=== PATIENT | male | born 1935 | race Caucasian/White ===

== ENCOUNTER 2025-02-27 18:50 | Inpatient (IN) | payer MEDICARE, SELFPAY ==
--- OUTSIDE RECORDS SUMMARY | 2019-03-06 11:31 | XMS_ITS | Continuity of Care Document ---
Author Organization [facility] Address [address] [place] [address] Phone Care Team Providers Care Instructor Extension Work Name Role Phone Brad OD, Neena Unavailable [...] Diagnoses Date Provider Providers Copied on Encounter [facility], [address], [place], [place], [id number], [place] tel:[phone] [facility] No Information 9 Brad Neena. [address], [place], [place], [address], [place]. tel:[phone] Referring Provider: Oscar Rodrigues, [address], [place], [address]. [phone] [facility], [address], [place], [place], [address], [place] tel:[phone] [facility] No Information 9 Brad Neena. [address], [place], [place], [id number], [place]. tel:[phone] Referring Provider: Oscra Rodrigues, [address], [place], [address]. tel:[phone] EST PT DETAILED E&M [facility], [address], [place], [place], [id number], [place] tel:[phone] [facility] Reports glare and starburst around lights (chief complaint) Reports foggy/hazy vision (chief complaint) POAG (chief complaint) Combined forms of age-related cataract, bilateralCys toid macular degeneration , right eyeVitreomac ular adhesion, right eyePrimary open-angle glaucoma, bilateral, mild stage 9 Tyrese Moore. [address], [place], [address], [place]. tel:[phone] Referring Provider: Oscar Rodrigues, [address], [place], [address]. tel:[phone] [facility], [address], [place], [place], [address], [place] tel:[phone] [facility] VMT (chief complaint) Vitreomacula r adhesion, right eyeCystoid macular degeneration , right eyeCombined forms of age-related cataract, bilateral 8 Milton Parks. [address] [place] [address] , [address], [place], [place], [facility], [place]. tel:[phone] Referring Provider: Neena Salinas, [address], [place], [address]. tel:[phone] EST PT DETAILED E&M [facility], [address], [place], [place], [id number], [place] tel:[phone] [facility] cataract eval (chief complaint) Combined forms of age-related cataract, bilateralVit reomacular adhesion, right eyePrimary open-angle glaucoma right eye mild stagePresbyo anjum 8 Patrick Ortiz. [address], [place], [place], [address], [place]. tel:[phone] Referring Provider: Neena Salinas, [facility] [address], [place], [address]. tel:[phone] [facility], [address], [place], [place], [id number], [place] tel:[phone] [facility] POAG (chief complaint) Primary open-angle glaucoma right eye mild stage 8 Patrick Ortiz. [address], [place], [place], [address], [place]. [phone] Referring Provider: Angel Hayes, [address], [place], [place], [address]. [phone] [facility], [address], [place], [place], [address], [place] tel:[phone] [facility] open angle (chief complaint) Age-related nuclear cataract, bilateralPri preet open-angle glaucoma right eye mild stageMacular cyst, hole, or pseudohole, right eyePresbyopi a 8 Johnny Dexter. [address], [place], [address], [place]. tel: [phone] Referring Provider: Isacc Reed, [address], [place], [address]. tel: [phone] [facility], [address], [place], [place], [id number], [place] tel:[phone] [facility] Eye [facility] [place] Primary open-angle glaucoma right eye mild stage Feb- 7 Johnny Dexter. [address], [place], [address], [place]. tel: [phone] [facility], [address], [place], [place], [address], [place] tel:[phone] [facility]ton[facility] Open angle with borderline findings, low risk, bilateral 7 Johnny Dexter. [address], [place], [place], [facility], [place]. tel: [phone] [facility], [address], [place], [place], [address], [place] tel:[phone] [facility] Age-related nuclear cataract, bilateralMac ular cyst, hole, or pseudohole, right eye 6 Johnny Dexter. [address], [place], [address], [place]. tel: [phone] [facility], [address], [place], [place], [address], [place] tel:[phone] [facility] [place] Preglaucoma, unspecified, bilateral 6 Johnny Dexter. [address], [place], [address], [place]. tel: [phone] [facility], [address], [place], [place], [address], [place] tel:[phone] SUSANNE Nayeli Joynera [facility] No Information 5 [address]. [address] [place], [address], [place]. tel:[phone] [facility], [address], [place], [place], [address], [place] tel:[phone] [facility] LeeK[facility] LID - BLEPHARITIS 2 Darell Terrazas. [address] [place], [place], [facility], [place]. tel:[phone] [facility], [address], [place], [place], [address], [place] tel:[phone] [facility] MACULA - DRUSENCATARA CT - CORTICALBLEP HARITIS 1 Darell Terrazas. [address] [place], [place], [facility], [place]. tel:[phone] [facility], [address], [place], [place], [address], [place] tel:[phone] [facility] GENERAL - MYOPIACATARA CT - NSCGLAUCOMA - GLAUCOMA SUSPECT Fe-0 201 0 Darell Terrazas. [address] [place], [place], [facility], [place]. tel:[phone] [facility], [address], [place], [place], [address], [place] tel:[phone] [facility] GLAUCOMA - GLAUCOMA SUSPECT November-0 200 9 Darell [address]razas. [address] [place], [place], [facility], [place]. tel:[phone] Family History Family Member Type Diagnosis Age At Onset No Information Immunizations Vaccine Date Status Comments Flu (split) (3 yrs or older) administered Source: Source Unspecified Payers Payer name Insurance type Covered libertarian ID Authoriza tion(s) No Information Social History [...] Vitre omacular adhesion, right eye Referral to [facility] at n ext available. // schedule cat sx, OU (retinal clearance prior) Related to Combined forms of age-related cataract, bilateral Impression/Plan Related to Prima ry open-angle glaucoma right eye mild stage Impression/Plan Related to Combi shane forms of age-related cataract, bilateral Impression/Plan Related to Vitre omacular adhesion, right eye Impression/Plan Related to Presb yopia RTC in 6 months for VCE w/ Dr. Salinas Related to Primary open-angle glaucoma right eye mild stage Impression/Plan Related to Prima ry open-angle glaucoma right eye mild stage RTC 4 mo OCT/TCK w/ Dr Johnny Elise lated to Primary open-angle glaucoma right eye mild stage Impression/Plan Related to Age-r elated nuclear cataract, bilateral Impression/Plan Related to Prima ry open-angle glaucoma right eye mild stage Impression/Plan Related to Macul ar cyst, hole, or pseudohole, right eye Impression/Plan Related to Presb yopia Assessments Type Assessment Date No Information Patient Care Teams Name Effective Dates (start - stop) Status Members No Information
[2025-02-27 18:44] VITALS: BP 129/79; PULSE 71; RESP 17; TEMP 37.2; O2SAT 93; BMI 25.1
--- NOTE | 2025-02-27 18:51 | ED_ITS ---
<Statement entered by Vel August DO - 02/28/25 01:51> I was consulted by the [facility], and we discussed the complexity of problems being addressed. I approved the treatment and management plan for this patient's care in the emergency department, thus performing a substantive portion of the medical decision making. Vel August DO Discharge Plan Disposition Patient Disposition: Admitted Condition: Fair Clinical Impressions Clinical Impression: Intertrochanteric fracture of left hip, Fall Discharge ED Provider: Vel August General Adult HPI <ALVAREZ Jarrell - Last Filed: 02/27/25 21:49> General Chief complaint: Extremity Injury, Lower Stated complaint: Fall Time Seen by Provider: 02/27/25 18:51 Mode of Arrival: EMS Source of Information: Patient Limitations: No Limitations History of Present Illness HPI narrative: 89-year-old male presents to the emergency department via EMS for a fall out of the back of his truck bed, has obvious deformity to the right hip/femur, complaining of right hip pain, no LOC, patient states he was down for around 30 minutes , denies striking head, no LOC but is somewhat unsure, denies any fever chills chest pain shortness of breath, denies any neck pain, mid thoracic spine pain or lower lumbar spine pain, denies any abdominal pain, nausea vomiting constipation diarrhea, no presyncopal or syncopal event, describes as a mechanical fall, has obvious skin tears to the right forearm, that are bandaged per EMS, and right shoulder pain, denies any other upper or lower extremity injury or pain, patient is a non-smoker denies any alcohol or drug use, other past medical history consistent with hypertension, unknown cardiac arrhythmia, on atropine he describes it as for skipped beats , not on any anticoagulant therapy, follows with cardiology regularly,. Initial triage vitals unremarkable. Patient is in c-collar, patient was given 100 mcg of IV fentanyl per EMS. Please note that above description of symptoms, in this electronic medical record under categorization of recalled from ER triage doctor by RN are reflective of an initial nursing assessment, however, is not reflective of my full history and physical exam that was personally taken and clarified. Consequentially, this preceding description of symptoms, which may include the patient's categorized chief complaint in the EMR, do not reflect my personal clinical impression, and the ultimate description of history of present illness and patient stated complaints should be deferred to this section of the note. Unless stated otherwise or congruent with this section of the note, additional signs, symptoms, or incongruence should be interpreted as inaccurate with my clinical impression. Onset (ago): hour(s) Related Data Home Medications ?Medication ?Instructions ?Recorded ?Confirmed budesonide 3 mg 3 mg PO DAILY 02/27/2502/27 capsule,delayed,extended release hydrochlorothiazide 12.5 mg capsule 12.5 mg PO DAILY 0 02/27/25 02/27/25 metoprolol succinate 25 mg 25 mg PO DAILY 02/27/25 tablet,extended release 24 hr Allergies Allergy/AdvReac Type Severity Reaction Status Date / Time No Known Allergies Allergy Verified 02/27/25 18:54 [facility] <ALVAREZ Jarrell - Last Filed: 02/27/25 21:49> [facility] Disclaimer: The information contained in this section may have been updated after the patient was seen, as this information can be updated by other users. Medical History (Updated 02/27/25 @ 23:32 by DONNA Mccormick) No significant past medical history Prostate cancer Family History (Updated 02/27/25 @ 22:45 by Alem Gomez RN) Other No significant family history Social History Smoking Status: Former smoker alcohol intake: current current occupational status: retired and other Travel in the last 8 weeks?: None Have you lived/traveled outside US in past 30 days?: No Contact w/someone who lives/traveled outside US past 30 days?: No Exposure to someone with infectious disease in past 14 days?: No Do you have a fever (greater than 100.4 F or 38 C)?: No Have you tested positive for COVID-19?: No Exposed to someone with COVID-19 in past 14 days?: No Do you have a sore throat?: No Do you have a cough?: No Do you have any weakness?: No Do you have any diarrhea?: No Are you experiencing any unusual bleeding?: No Do you have any muscle aches/pain?: No Do you have any abdominal pain?: No Are you experiencing loss of taste or smell?: No <ALVAREZ Jarrell - Last Filed: 02/27/25 21:49> ROS Obtained: Yes All systems reviewed & no additional complaints except as documented Physical Exam <ALVAREZ Jarrell - Last Filed: 02/27/25 21:49> General General appearance: alert and in no apparent distress Head Head exam: atraumatic and normocephalic Eye Eye exam: Present PERRL and EOMI ENT ENT exam: Present mucous membranes moist Neck Neck exam: Present normal inspection Chest Chest inspection: Present normal inspection and symmetric chest wall rise Respiratory Respiratory exam: Present normal lung sounds bilaterally; Absent respiratory distress, wheezes, stridor or accessory muscle use Cardiovascular Cardiovascular exam: Present regular rate and normal rhythm; Absent bradycardia or tachycardia Abdominal Exam Abdominal exam: Present soft; Absent tenderness, guarding, rebound or rigidity Extremities Exam Extremities exam: Present tenderness and other (Obvious deformity with external rotation and shortening of the right hip, pain to palpation to the right hip joint, no obvious open fracture, moves left lower extremity to command, otherwise neurovascular intact); Absent normal inspection Back Exam Back exam: Present normal inspection and full ROM; Absent tenderness, paraspinal tenderness or vertebral tenderness Neurological Exam Neurological exam: Present alert and oriented X3 Psychiatric Psychiatric exam: Present normal affect Skin Skin exam: Present warm, dry and other (Obvious skin tear/superficial skin abrasions noted around the left forearm, left elbow region, no active bleeding at this time, did have dressing applied per EMS.) Medical Decision Making <ALVAREZ Jarrell - Last Filed: 02/27/25 21:49> Medical Records Medical records reviewed: Yes I reviewed the patient's medical records. Screening: Per USPSTF and CDC recommendations, given the prevalence of disease in our region, it is our hospital?s policy to screen for HIV and viral Hepatitis for all patients aged 18 and over and those with ongoing risk factors. Armand Inquiry Pt receiving controlled substance: No Vital Signs: 02/27/25 18:44 02/27/25 19:14 02/27/25 21:08 Temperature 98.9 F Temperature Source Oral Pulse Rate 71 Pulse Rate [Left Radial] 71 Respiratory Rate 17 18 Blood Pressure 143/79 H Blood Pressure [Right Arm] 129/79 Blood Pressure Mean [Right Arm] 95 Blood Pressure Source [Right Arm] Automatic Cuff Blood Pressure Position [Right Arm] Sitting 02 Sat by Pulse Oximetry 93 L 94 L 96 Oxygen Delivery Method Room Air Room Air Room Air 02/27/25 21:17 02/27/25 21:48 Temperature 98.4 F Temperature Source Pulse Rate 63 65 Pulse Rate [Left Radial] Respiratory Rate 16 13 Blood Pressure 127/72 130/68 Blood Pressure [Right Arm] Blood Pressure Mean [Right Arm] Blood Pressure Source [Right Arm] Blood Pressure Position [Right Arm] 02 Sat by Pulse Oximetry 100 Oxygen Delivery Method Room Air Room Air Lab Data Lab results reviewed: Yes I reviewed the patient's lab results. Lab Results 02/27/25 19:02: WBC 9.4, RBC 3.56 L, Hgb 11.6 L, Hct 33.4 L, MCV 93.8, MCH 32.6 H, MCHC 34.7, RDW 13.7, Plt Count 278, MPV 9.4, Neut % (Auto) 74.1, Lymph % (Auto) 13.6, Ada % (Auto) 9.7 H, Eos % (Auto) 1.6, Baso % (Auto) 0.7, Neut # (Auto) 7.0, Lymph # (Auto) 1.3, Ada # (Auto) 0.9, Eos # (Auto) 0.2, Baso # (Auto) 0.1, Sodium 135 L, Potassium 4.0, Chloride 106, Carbon Dioxide 21 L, Anion Gap 12.0, BUN 22 H, Creatinine 0.90, Estimated Creat Clear 60, Estimated GFR 80, Est GFR ( Amer) 97, Glucose 110 H, Calcium 8.6, Total Bilirubin 0.5, AST 43, ALT 23, Alkaline Phosphatase 84, Total Creatine Kinase 210 H, Troponin I < 0.01, NT-Pro-B Natriuret Pep 340, Total Protein 6.7, Albumin 4.0, Globulin 2.7, Albumin/Globulin Ratio 1.5 02/27/25 19:02 02/27/25 19:02 Orders (Tests/Meds): ED MEDICATIONS Generic Name Dose Route Start Last Admin Trade Name Freq PRN Reason Stop Dose Admin Acetaminophen 650 mg 02/27/25 21:05 Acetaminophen 325mg Tab PO 03/29/25 21:04 Q4HP PRN Fever or Mild Pain (1-3) Hydrocodone Bitart/Acetaminophen 1 tab 02/27/25 21:05 Hydrocodone/Apap 5/325 Mg Tablet PO 03/29/25 21:04 Q4HP PRN Mild to Moderate Pain (1-6) Sodium Chloride 1,000 mls @ 75 mls/hr 02/27/25 21:15 02/27/25 22:17 Sod Chlor 0.9% 1000ml Bag IV 03/29/25 21:14 75 mls/hr .[id number] JELANI Administration Morphine Sulfate 2 mg 02/27/25 21:05 02/27/25 22:18 Morphine 2mg/Ml Syringe IV 03/29/25 21:04 2 mg Q4HP PRN Administration Severe Pain (7-10) Discontinued Medications Generic Name Dose Route Start Last Admin Trade Name Freq PRN Reason Stop Dose Admin Hydromorphone HCl 1 mg 02/27/25 19:53 02/27/25 20:09 Hydromorphone 2mg/Ml Syringe IV 02/27/25 19:54 1 mg ONCE ONE Administration Hydromorphone HCl 0.5 mg 02/27/25 20:59 02/27/25 21:15 Hydromorphone 2mg/Ml Syringe IV 02/27/25 21:00 0.5 mg ONCE ONE Administration Ondansetron HCl 4 mg 02/27/25 19:38 02/27/25 20:09 Ondansetron 4mg/2ml Vial IV 02/27/25 19:39 4 mg ONCE ONE Administration ORDERS Category Date Time Status CT bony pelvis Stat Cat Scan 02/27/25 19:[address] cervical spine wo con Stat Cat Scan 02/27/25 18:[address] head/brain wo con Stat Cat Scan 02/27/25 18:57 Completed Consult to Orthopedic Surgery [CONS] Stat Cons 02/27/25 21:06 Ordered XR chest portable Stat Exams 02/27/25 18:56 Completed XR femur RT 2V Stat Exams 02/27/25 18:57 Completed XR forearm RT 2V Stat Exams 02/27/25 19:24 Completed XR hip RT 2-3V w/pelvis Stat Exams 02/27/25 18:55 Completed XR shoulder RT min 2V Stat Exams 02/27/25 19:24 Completed Basic Metabolic Panel AMLAB Lab 02/28/25 06:00 Ordered CK [Creatine Kinase] Stat Lab 02/27/25 19:02 Completed CMP [Comprehensive Metabolic Panel] Stat Lab 02/27/25 19:02 Completed Complete Blood Count Auto Diff AMLAB Lab 02/28/25 06:00 Ordered Complete Blood Count Auto Diff Stat Lab 02/27/25 19:02 Completed NT Pro Brain Natriuretic Pep. Stat Lab 02/27/25 19:02 Completed Troponin I Q3H Lab 02/27/25 22:24 Completed Troponin I Q3H Lab 02/28/25 01:00 Ordered Troponin I Stat Lab 02/27/25 19:02 Completed Medical Decision Narrative: 89-year-old male presents to the emergency department for a fall off his truck bed, with right hip pain, right arm pain and skin tears, differential diagnose include but not limited to femur fracture, hip fracture, cardiac arrhythmia, electrolyte disturbance, traumatic SAH, SDH, cervicalgia, cervical spine fracture, superficial skin tears, abrasions, other soft tissue injury among others. I discussed this patient's case with the attending physician Will obtain basic laboratory studies, CK level, proBNP, troponin, EKG, CT cervical spine without contrast, CT head without contrast, chest x-ray, femur x- ray, pelvis on the right with femur, right forearm x-ray, right shoulder x-ray. Patient complaining of some worsening pain when being transferred to CT scan and imaging suite, will 1 mg IV Dilaudid and 4 mg IV Zofran for pain and nausea. CBC unremarkable I reviewed this patient's CT head without contrast along with the corresponding radiologic report, no acute intracranial process chronic findings. I reviewed the patient's CT cervical spine without contrast along with the corresponding radiological report, no acute cervical fracture or traumatic subluxation, mild broad-based cervical levocurvature maintained cervical lordosis, degenerative changes. I reviewed the right forearm x-ray, right shoulder x-ray along with corresponding radiologic reports negative right shoulder x-ray, negative forearm x-ray. I reviewed the patient's femur x-ray on the right as well as hip x-ray on the right. There is acute highly commuted mildly displaced intertrochanteric right hip fracture, no additional acute osseous abnormalities, probable small suprapatellar joint effusion, there is no acute joint dislocation, no significant degenerative arthropathy I reviewed the patient's chest x-ray along the corresponding radiologic report, no radiographically acute cardiopulmonary process, mild bibasilar atelectasis versus scarring. CMP is unremarkable with the exception of elevated BUN at 22, total CK is mildly elevated at 210, proBNP within normal limits. I reviewed the patient's CT bony pelvis without contrast along the corresponding radiologic report, moderately comminuted and displaced right femoral intertrochanteric fracture. Troponin and proBNP within normal limits I discussed this patient's case with the on-call orthopedic physician Dr. Robert at approximately 8:45 PM, he recommends admit to hospitalist service, 4 OR either tomorrow or Sunday. I discussed need for admission with family and patient at the bedside patient and family are in agreement with current treatment plan/transfer plan. Patient still having quite significant pain, will give another dose of 0.5 mg IV Dilaudid for pain. I discussed this patient's case with the hospitalist KRISTINA Duke at approximately 8:58 PM, she is agreement with the current admission plan/treatment plan. For acute right intertrochanteric hip fracture. With orthopedic consultation in the a.m. with the OR/surgical fixation tomorr or Sunday. <Vel August, DO - Last Filed: 02/28/25 01:35> Vital Signs: 02/27/25 18:44 02/27/25 19:14 02/27/25 21:08 Temperature 98.9 F Temperature Source Oral Pulse Rate 71 Pulse Rate [Left Radial] 71 Respiratory Rate 17 18 Blood Pressure 143/79 H Blood Pressure [Right Arm] 129/79 Blood Pressure Mean [Right Arm] 95 Blood Pressure Source [Right Arm] Automatic Cuff Blood Pressure Position [Right Arm] Sitting 02 Sat by Pulse Oximetry 93 L 94 L 96 Oxygen Delivery Method Room Air Room Air Room Air 02/27/25 21:17 02/27/25 21:48 Temperature 98.4 F Temperature Source Pulse Rate 63 65 Pulse Rate [Left Radial] Respiratory Rate 16 13 Blood Pressure 127/72 130/68 Blood Pressure [Right Arm] Blood Pressure Mean [Right Arm] Blood Pressure Source [Right Arm] Blood Pressure Position [Right Arm] 02 Sat by Pulse Oximetry 100 Oxygen Delivery Method Room Air Room Air Lab Data Lab Results 02/27/25 19:02: WBC 9.4, RBC 3.56 L, Hgb 11.6 L, Hct 33.4 L, MCV 93.8, MCH 32.6 H, MCHC 34.7, RDW 13.7, Plt Count 278, MPV 9.4, Neut % (Auto) 74.1, Lymph % (Auto) 13.6, Ada % (Auto) 9.7 H, Eos % (Auto) 1.6, Baso % (Auto) 0.7, Neut # (Auto) 7.0, Lymph # (Auto) 1.3, Ada # (Auto) 0.9, Eos # (Auto) 0.2, Baso # (Auto) 0.1, Sodium 135 L, Potassium 4.0, Chloride 106, Carbon Dioxide 21 L, Anion Gap 12.0, BUN 22 H, Creatinine 0.90, Estimated Creat Clear 60, Estimated GFR 80, Est GFR ( Amer) 97, Glucose 110 H, Calcium 8.6, Total Bilirubin 0.5, AST 43, ALT 23, Alkaline Phosphatase 84, Total Creatine Kinase 210 H, Troponin I < 0.01, NT-Pro-B Natriuret Pep 340, Total Protein 6.7, Albumin 4.0, Globulin 2.7, Albumin/Globulin Ratio 1.5 Orders (Tests/Meds): ED MEDICATIONS Generic Name Dose Route Start Last Admin Trade Name Freq PRN Reason Stop Dose Admin Acetaminophen 650 mg 02/27/25 21:05 Acetaminophen 325mg Tab PO 03/29/25 21:04 Q4HP PRN Fever or Mild Pain (1-3) Hydrocodone Bitart/Acetaminophen 1 tab 02/27/25 21:05 Hydrocodone/Apap 5/325 Mg Tablet PO 03/29/25 21:04 Q4HP PRN Mild to Moderate Pain (1-6) Sodium Chloride 1,000 mls @ 75 mls/hr 02/27/25 21:15 02/27/25 22:17 Sod Chlor 0.9% 1000ml Bag IV 03/29/25 21:14 75 mls/hr .[id number] JELANI Administration Morphine Sulfate 2 mg 02/27/25 21:05 02/27/25 22:18 Morphine 2mg/Ml Syringe IV 03/29/25 21:04 2 mg Q4HP PRN Administration Severe Pain (7-10) Discontinued Medications Generic Name Dose Route Start Last Admin Trade Name Freq PRN Reason Stop Dose Admin Hydromorphone HCl 1 mg 02/27/25 19:53 02/27/25 20:09 Hydromorphone 2mg/Ml Syringe IV 02/27/25 19:54 1 mg ONCE ONE Administration Hydromorphone HCl 0.5 mg 02/27/25 20:59 02/27/25 21:15 Hydromorphone 2mg/Ml Syringe IV 02/27/25 21:00 0.5 mg ONCE ONE Administration Ondansetron HCl 4 mg 02/27/25 19:38 02/27/25 20:09 Ondansetron 4mg/2ml Vial IV 02/27/25 19:39 4 mg ONCE ONE Administration ORDERS Category Date Time Status CT bony pelvis Stat Cat Scan 02/27/25 19:[address] cervical spine wo con Stat Cat Scan 02/27/25 18:[address] head/brain wo con Stat Cat Scan 02/27/25 18:57 Completed Consult to Orthopedic Surgery [CONS] Stat Cons 02/27/25 21:06 Ordered XR chest portable Stat Exams 02/27/25 18:56 Completed XR femur RT 2V Stat Exams 02/27/25 18:57 Completed XR forearm RT 2V Stat Exams 02/27/25 19:24 Completed XR hip RT 2-3V w/pelvis Stat Exams 02/27/25 18:55 Completed XR shoulder RT min 2V Stat Exams 02/27/25 19:24 Completed Basic Metabolic Panel AMLAB Lab 02/28/25 06:00 Ordered CK [Creatine Kinase] Stat Lab 02/27/25 19:02 Completed CMP [Comprehensive Metabolic Panel] Stat Lab 02/27/25 19:02 Completed Complete Blood Count Auto Diff AMLAB Lab 02/28/25 06:00 Ordered Complete Blood Count Auto Diff Stat Lab 02/27/25 19:02 Completed NT Pro Brain Natriuretic Pep. Stat Lab 02/27/25 19:02 Completed Troponin I Q3H Lab 02/27/25 22:24 Completed Troponin I Q3H Lab 02/28/25 01:00 Ordered Troponin I Stat Lab 02/27/25 19:02 Completed ECG Data Tracing #1: I reviewed this ECG and interpreted as documented below: EKG personally interpreted by me demonstrates normal sinus rhythm with a rate of 68 bpm, normal axis, no MN prolongation, narrow QRS with incomplete right bundle branch block morphology, no QTc prolongation. No ST elevation or depression. No overt signs of ischemia or arrhythmia Critical Care <ALVAREZ Jarrell - Last Filed: 02/27/25 21:49> Critical Care Time Critical Care Time: No
--- NOTE | 2025-02-27 18:55 | XR_ITS ---
PROCEDURE INFORMATION: Exam: XR Right Hip Exam date and time: 02/27/2025 7:48 PM Age: 89 years old Clinical indication: Injury or trauma; Fall; Blunt trauma (contusions or hematomas); Right; Hip; Additional info: Fall with injury TECHNIQUE: Imaging protocol: Radiologic exam of the right hip. Views: 2 or 3 views hip with pelvis when performed. Total images: 3 COMPARISON: CT BONY PELVIS 02/27/2025 7:44 PM FINDINGS: Bones/joints: Acute highly comminuted and mildly displaced intratrochanteric right hip fracture. No joint dislocation. No significant degenerative arthropathy. No acute pelvic fracture. No widening of the pubic symphysis or sacroiliac joints. Soft tissues: Soft tissue swelling associated with right hip fracture. Intraperitoneal space: Surgical clips base of the pelvis. Vasculature: Pelvic/perineal phleboliths. Mild atherosclerotic vascular calcifications. IMPRESSION: 1. Acute highly comminuted and mildly displaced intratrochanteric right hip fracture. 2. No joint dislocation. 3. No significant degenerative arthropathy.
--- NOTE | 2025-02-27 18:56 | XR_ITS ---
PROCEDURE INFORMATION: Exam: XR Chest Exam date and time: 02/27/2025 7:48 PM Age: 89 years old Clinical indication: Injury or trauma; Fall; Blunt trauma (contusions or hematomas) TECHNIQUE: Imaging protocol: Radiologic exam of the chest. Views: 1 view. Total images: 1 COMPARISON: CT CERVICAL SPINE WO CON 02/27/2025 7:42 PM FINDINGS: Tubes, catheters and devices: EKG leads are present. Lungs: Mild bibasilar atelectasis versus scarring. No airspace consolidation, vascular congestion, or pulmonary edema. Pleural spaces: Unremarkable. No pleural effusion. No pneumothorax. Heart/Mediastinum: Unremarkable. No cardiomegaly. No mediastinal widening or hilar enlargement. Vasculature: Mildly atherosclerotic and tortuous thoracic aorta. Bones/joints: Unremarkable. IMPRESSION: 1. No radiographically acute cardiopulmonary process. 2. Mild bibasilar atelectasis versus scarring.
--- NOTE | 2025-02-27 18:57 | CT_ITS ---
PROCEDURE INFORMATION: Exam: CT Head Without Contrast Exam date and time: 02/27/2025 7:40 PM Age: 89 years old Clinical indication: Injury or trauma; Additional info: Fall with injury TECHNIQUE: Imaging protocol: Computed tomography of the head without contrast. Total images: 670 Radiation optimization: All CT scans at this facility use at least one of these dose optimization techniques: automated exposure control; mA and/or kV adjustment per patient size (includes targeted exams where dose is matched to clinical indication); or iterative reconstruction. COMPARISON: No relevant prior studies available. FINDINGS: Brain: No acute intracranial hemorrhage, midline shift, or mass. Mild cortical and cerebellar atrophy. Moderate remote white matter small-vessel ischemic changes. No acute territorial infarct. The basilar cisterns are maintained. Benign dural calcifications. Cerebral ventricles: Mild ventricular prominence compatible degree of central atrophy. Paranasal sinuses: Polypoid mucosal thickening base of the bilateral maxillary sinuses. No air-fluid levels. Mastoid air cells: Visualized mastoid air cells are well aerated. Orbital cavities: Bilateral orbital lens replacement. Bones: Unremarkable. No acute fracture. Soft tissues: Unremarkable. Vasculature: Moderate calcifications bilateral intracranial internal carotid arteries. Insulin dental artifact limiting adjacent structures. Notes: Mild limitations from motion and attenuation artifact. IMPRESSION: 1. No acute intracranial process. 2. Chronic findings.
--- NOTE | 2025-02-27 18:57 | XR_ITS ---
PROCEDURE INFORMATION: Exam: XR Right Femur Exam date and time: 02/27/2025 7:48 PM Age: 89 years old Clinical indication: Injury or trauma; Fall; Blunt trauma; Hip; Right; Additional info: Fall injury TECHNIQUE: Imaging protocol: Radiologic exam of the right femur. Views: 2 views. Total images: 5 COMPARISON: CT BONY PELVIS 02/27/2025 7:44 PM FINDINGS: Bones/joints: Acute highly comminuted and mildly displaced intratrochanteric right hip fracture. No additional acute fracture. No joint dislocation. Joint spaces are appropriate for age. Suspect small suprapatellar joint effusion. Soft tissues: Soft tissue swelling at the fracture site. Vasculature: Mild vascular calcifications. IMPRESSION: 1. Acute highly comminuted and mildly displaced intratrochanteric right hip fracture. 2. No additional acute osseous abnormalities. 3. Probable small suprapatellar joint effusion.
--- NOTE | 2025-02-27 18:57 | CT_ITS ---
PROCEDURE INFORMATION: Exam: CT Cervical Spine Without Contrast Exam date and time: 02/27/2025 7:42 PM Age: 89 years old Clinical indication: Injury or trauma; Additional info: Fall with injury TECHNIQUE: Imaging protocol: Computed tomography of the cervical spine without contrast. Total images: 494 Radiation optimization: All CT scans at this facility use at least one of these dose optimization techniques: automated exposure control; mA and/or kV adjustment per patient size (includes targeted exams where dose is matched to clinical indication); or iterative reconstruction. COMPARISON: CT HEAD/BRAIN WO CON 02/27/2025 7:40 PM FINDINGS: Bones: Maintained cervical lordosis. Vertebral body height is preserved. Minimal retrolisthesis C3-C4. The base of the dens and the C1 and C2 articulations are preserved with mild degenerative arthropathy. The cervicooccipital junction is intact. 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 The facet joints are appropriately aligned. Moderate degenerate facet joint spondylosis bilaterally at C3-C4 and C4-C5. The posterior elements are intact. Moderate to severe degenerative disc disease C5-C6 and C6-C7. Minor anterolisthesis C6-C7 is most likely degenerative. Mild degenerative disc disease C7-T1. No large disc herniation or critical spinal canal stenosis. Bilateral neural foraminal encroachment at multiple levels. No concerning bone lesions. Mild broad-based cervical levocurvature. Paranasal sinuses: Polypoid mucosal thickening base of the bilateral maxillary sinuses. Lungs: The lung apices are clear. Vasculature: Mild calcifications bilateral carotid artery bifurcations. Soft tissues: No prevertebral soft tissue swelling. Unremarkable soft tissues of the neck. IMPRESSION: 1. No acute cervical fracture or traumatic subluxation. 2. Mild broad-based cervical levocurvature. Maintained cervical lordosis. 3. Degenerative changes as described in detail.
--- NOTE | 2025-02-27 19:03 | ECG_ITS ---
APPROVED REPORT Exam: Resting ECG HR:68 bpm ECG Measurements Heart Rate 68 AXES WV 154 P 93 QRSd 114 QRS 62 QT 429 T 50 QTc 447 Conclusion Normal sinus with isolated PAC (last QRS complex) Normal [place] Normal intervals NO STEMI Electronically signed by : Vel August, 02/28/2025 01:40:53
[2025-02-27 19:07] LABS: Hematocrit 33.4 % (42.0-52.0); Hemoglobin 11.6 g/dL (14.1-18.0); Immature Granulocytes % 0.3 %; Mean Corpuscular HGB Conc 34.7 g/dL (31.8-35.4); Mean Corpuscular Hemoglobin 32.6 pg (27.0-31.2); Mean Corpuscular Volume 93.8 fl (80-94); Nucleated Red Blood Cells % 0 %; Platelet Count 278 K/mm3 (142-424); Red Blood Count 3.56 M/mm3 (4.60-6.20); Red Cell Distribution Width-SD 47.1 fL; White Blood Count 9.4 K/mm3 (4.8-10.8)
[2025-02-27 19:14] VITALS: BP 143/79; PULSE 71; RESP 18; O2SAT 94
--- NOTE | 2025-02-27 19:15 | PC.NURSE ---
Resumed care from BISI Soto
--- OUTSIDE RECORDS SUMMARY | 2025-02-27 19:20 | XMS_ITS | Encounter Summary ---
Author Organization [facility] Address [address] [place] [address] Care Team Providers Care Senior Engineering Team Leader Name Role Phone Darell Hernandez MD Primary Care Provider Encounter Details Date Type Department Care Team (Late st Contact Info) Description 07/16/2020 Released Orders Wellness Testing - [facility] [address] [place] [address] [facility] [address] [place] [address] Social History Tobacco Use Types Packs/Day Years Used Date Smoking Tobacco: Never Smokeless Tobacco: Never Alcohol Use Standard Drinks/Week Comments Yes 0 (1 standard drink = 0.6 oz pur e alcohol) Sex and Gender Information Value Date Recorded Sex Assigned at Not on file 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
--- OUTSIDE RECORDS SUMMARY | 2025-02-27 19:20 | XMS_ITS | Encounter Summary ---
Author Organization [facility] Address [address] [place] [address] Care Team Providers Care Eviscerator Name Role Phone Darell Hernandez MD Primary Care Provider Encounter Details Date Type Department Care Team (Late st Contact Info) Description 07/13/2020 Released Orders Wellness Testing - [facility] [address] [place] [address] [facility] [address] [place] [address] Social History Tobacco Use Types Packs/Day Years Used Date Smoking Tobacco: Never Smokeless Tobacco: Never Alcohol Use Standard Drinks/Week Comments Yes 0 (1 standard drink = 0.6 oz pur e alcohol) Sex and Gender Information Value Date Recorded Sex Assigned at Not on file 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
--- OUTSIDE RECORDS SUMMARY | 2025-02-27 19:20 | XMS_ITS | CCD ---
Author Name Interface, [id number] l[employer] Address [address] [place] [address] [facility] Address [address] [address] Reason for Visit Social History
--- OUTSIDE RECORDS SUMMARY | 2025-02-27 19:20 | XMS_ITS | Clinical Summary ---
Author Organization [facility] Address [address] [place] [address] Care Team Providers Care Supervisor Border Department Name Role Phone Darell Hernandez MD Primary Care Provider Allergies No known active allergies Medications timolol GFS (TIMOPTIC-XE) 0.5 % ophthalmic gel forming drop in affected eye(s). Active HYDROcodone-majo taminophen (NORCO) 5-325 mg oral tablet Take 1 Tab by mouth every 6 hours as needed for Pain. Max of 3000 mg acetaminophen /24hrs (all sources). 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 Gender Identity Not on file Sexual Orientation Not on file Last Filed Vital Signs Vital Sign Reading Time Taken Comments Blood Pressure 147/87 05/02/2018 9:24 AM CDT Pulse 58 05/02/2018 9:24 AM CDT Temperature - - Respiratory Rate - - Oxygen Saturation - - Inhaled Oxygen Concentration - - Weight 83.9 kg (185 lb) 05/02/2018 9:24 AM CDT Height 185.4 cm (6' 1 ) 05/02/2018 9:24 AM CDT Body Mass Index 24.41 05/02/2018 9:24 AM CDT Plan of Treatment Not on file Insurance BLUE MEDICARE ADVANTAGE (NEW) Care Teams Supervisor Border Department Relationship Specialty Start Date End Date Darell Hernandez MD PCP - General Internal Medicine 05/02/18
--- NOTE | 2025-02-27 19:24 | XR_ITS ---
PROCEDURE INFORMATION: Exam: XR Right Shoulder Exam date and time: 02/27/2025 7:48 PM Age: 89 years old Clinical indication: Injury or trauma; Fall; Blunt trauma (contusions or hematomas); Shoulder; Right; Additional info: Fall right shoulder pain TECHNIQUE: Imaging protocol: Radiologic exam of the right shoulder. Views: 2 or more views. Total images: 3 COMPARISON: CT CERVICAL SPINE WO CON 02/27/2025 7:42 PM FINDINGS: Bones/joints: No acute fracture, joint dislocation, or AC joint separation. Age-appropriate joint spaces. Maintain subacromial distance. No concerning bone lesions. Soft tissues: Unremarkable soft tissues. IMPRESSION: Negative right shoulder.
--- NOTE | 2025-02-27 19:24 | XR_ITS ---
PROCEDURE INFORMATION: Exam: XR Right Forearm Exam date and time: 02/27/2025 7:48 PM Age: 89 years old Clinical indication: Injury or trauma; Fall; Blunt trauma (contusions or hematomas); Arm, lower; Right; Additional info: Fall right forearm pain TECHNIQUE: Imaging protocol: Radiologic exam of the right forearm. Views: 2 views. Total images: 2 COMPARISON: No relevant prior studies available. FINDINGS: Bones/joints: No acute fracture or joint dislocation. No concerning bone lesions or calcifications. Age-appropriate joint spaces. Soft tissues: Unremarkable soft tissues. IMPRESSION: Unremarkable right forearm.
--- NOTE | 2025-02-27 19:31 | PC.NURSE ---
PT transported to radiology via stretcher by radiology staff.
--- NOTE | 2025-02-27 19:38 | CT_ITS ---
PROCEDURE INFORMATION: Exam: CT Pelvis Without Contrast, Skeleton Exam date and time: 02/27/2025 7:44 PM Age: 89 years old Clinical indication: Injury or trauma; Additional info: Right hip fracture TECHNIQUE: Imaging protocol: Computed tomography of the pelvis without contrast. Exam focused on the skeleton. Radiation optimization: All CT scans at this facility use at least one of these dose optimization techniques: automated exposure control; mA and/or kV adjustment per patient size (includes targeted exams where dose is matched to clinical indication); or iterative reconstruction. COMPARISON: No relevant prior studies available. FINDINGS: Intestine: Severe sigmoid diverticulosis without diverticulitis. Vasculature: The arteries demonstrate mild atherosclerotic disease. Reproductive: Metallic bodies around the prostate. Bones/joints: Moderately comminuted and displaced right femoral intertrochanteric fracture. Soft tissues: There is hematoma in the muscles of the proximal right thigh. IMPRESSION: Moderately comminuted and displaced right femoral intertrochanteric fracture.
[2025-02-27 19:52] LABS: NT Pro Brain Natriuretic Pep. 340 pg/mL (0-450)
[2025-02-27] MEDS: HYDROMORPHONE 2MG/ML SYRINGE 1 MG IV (20:09)
[2025-02-27] MEDS: ONDANSETRON 4MG/2ML VIAL 4 MG IV (20:09)
[2025-02-27 20:13] LABS: Alanine Aminotransferase 23 U/L (12-78); Albumin Level 4.0 g/dl (3.5-5.0); Albumin/Globulin Ratio 1.5 (1.1-1.8); Alkaline Phosphatase 84 U/L (38-126); Anion Gap 12.0 mEq/L (5-15); Aspartate Amino Transferase 43 U/L (17-59); Bilirubin,Total 0.5 mg/dl (0.2-1.3); Blood Urea Nitrogen 22 mg/dl (9-20); Calcium 8.6 mg/dl (8.4-10.2); Carbon Dioxide 21 mmol/L (22.0-30.0); Chloride 106 mmol/L (98-107); Creatine Kinase 210 U/L (55-170); Creatinine Clearance Estimated 60 mL/min (50-200); Creatinine,Serum 0.90 mg/dl (0.66-1.25); Estimated Glomerular Filt Rate 80 ml/min (>60); GFR (African American) 97 ML/MIN (>60); Globulin 2.7 g/dL (1.3-3.2); Glucose 110 mg/dl (74-100); Potassium 4.0 mmoL/L (3.5-5.1); Sodium 135 mmol/L (136-145); Total Protein,Serum 6.7 g/dl (6.3-8.2)
[2025-02-27 20:37] LABS: Troponin I < 0.01 ng/ml (0.00-0.034)
[2025-02-27 21:08] VITALS: O2SAT 96
[2025-02-27] MEDS: HYDROMORPHONE 2MG/ML SYRINGE 0.5 MG IV (21:15)
[2025-02-27 21:17] VITALS: BP 127/72; PULSE 63; RESP 16; O2SAT 100
--- NOTE | 2025-02-27 21:30 | PC.NURSE ---
Report called to BISI Peña
[2025-02-27 21:48] VITALS: BP 130/68; PULSE 65; RESP 13; TEMP 36.9; O2SAT 94
--- NOTE | 2025-02-27 21:54 | PC.NURSE ---
pt arrived on the floor at this time.
[2025-02-27] MEDS: 0.9 % SODIUM CHLORIDE 1000ML 1,000 ML 75 ML IV (22:17)
[2025-02-27] MEDS: MORPHINE 2MG/ML SYRINGE 2 MG IV (22:18)
[2025-02-27 23:04] LABS: Troponin I < 0.01 ng/ml (0.00-0.034)
--- NOTE | 2025-02-27 23:26 | EXP.HP ---
History of Present Illness *Admission Date: 02/27/25 *Reason for visit:: Fall *History of present illness: This is a very pleasant 89-year-old male with past medical history of hypertension who presents emergency department today for right hip pain. He reports he was in the bed of his truck moving some items when he tripped over a log in his truck. Fell landing on his right side. States that he laid there for some time, approximately 30 minutes. Reports he hit his head but does not feel like he had any LOC. Denies any chest pain, shortness of breath prior to fall. States he was in his normal state of health when he tripped Emergency Department workup notable for moderately comminuted and displaced right femoral intertrochanteric fracture. Mildly elevated CK of 210 but labs otherwise stable. Dr. Robert was consulted, patient will be n.p.o. for operative plan tomorrow He is admitted to hospital service at this time [facility] Disclaimer: The information contained in this section may have been updated after the patient was seen, as this information can be updated by other users. Medical History (Updated 02/27/25 @ 23:32 by DONNA Mccormick) No significant past medical history Prostate cancer Family History (Updated 02/27/25 @ 22:45 by Alem Gomez RN) Other No significant family history Social History Smoking Status: Former smoker alcohol intake: current current occupational status: retired and other Travel in the last 8 weeks?: None Have you lived/traveled outside US in past 30 days?: No Contact w/someone who lives/traveled outside US past 30 days?: No Exposure to someone with infectious disease in past 14 days?: No Do you have a fever (greater than 100.4 F or 38 C)?: No Have you tested positive for COVID-19?: No Exposed to someone with COVID-19 in past 14 days?: No Do you have a sore throat?: No Do you have a cough?: No Do you have any weakness?: No Do you have any diarrhea?: No Are you experiencing any unusual bleeding?: No Do you have any muscle aches/pain?: No Do you have any abdominal pain?: No Are you experiencing loss of taste or smell?: No Other Medical History Have you received the Flu Vaccine for this season: No Have you received the Pneumonia Vaccine: No Review of Systems Review of Systems Review of systems:: pertinent systems reviewed and negative unless documented below Review of systems (narrative): Negative except for HPI Meds Home Medications and Allergies Home Medications ?Medication ?Instructions ?Recorded ?Confirmed ?Type budesonide 3 mg 3 mg PO DAILY 02/27/25 02/27/25 History capsule,delayed,extended release hydrochlorothiazide 12.5 mg capsule 12.5 mg PO DAILY 02/27/25 02/27/25 History metoprolol succinate 25 mg 25 mg PO DAILY 02/27/25 02/27/25 History tablet,extended release 24 hr New Prescriptions to Start Prescriptions: Allergies Allergy/AdvReac Type Severity Reaction Status Date / Time No Known Allergies Allergy Verified 02/27/25 18:54 Exam Data for Last 24 hours Vital signs and Labs for Last 24 Hours: Temp Pulse Resp BP Pulse Ox O2 Del Method 98.4 F 65 13 130/68 100 Room Air 02/27/25 21:48 02/27/25 21:48 02/27/25 21:48 02/27/25 21:48 02/27/25 21:17 02/27/25 23:00 Laboratory Results - last 24 hr 02/27/25 19:02: WBC 9.4, RBC 3.56 L, Hgb 11.6 L, Hct 33.4 L, MCV 93.8, MCH 32.6 H, MCHC 34.7, RDW 13.7, Plt Count 278, MPV 9.4, Neut % (Auto) 74.1, Lymph % (Auto) 13.6, [place] % (Auto) 9.7 H, Eos % (Auto) 1.6, Baso % (Auto) 0.7, Neut # (Auto) 7.0, Lymph # (Auto) 1.3, [place] # (Auto) 0.9, Eos # (Auto) 0.2, Baso # (Auto) 0.1, Sodium 135 L, Potassium 4.0, Chloride 106, Carbon Dioxide 21 L, Anion Gap 12.0, BUN 22 H, Creatinine 0.90, Estimated Creat Clear 60, Estimated GFR 80, Est GFR ( Amer) 97, Glucose 110 H, Calcium 8.6, Total Bilirubin 0.5, AST 43, ALT 23, Alkaline Phosphatase 84, Total Creatine Kinase 210 H, Troponin I < 0.01, NT-Pro-B Natriuret Pep 340, Total Protein 6.7, Albumin 4.0, Globulin 2.7, Albumin/Globulin Ratio 1.5 02/27/25 22:24: Troponin I < 0.01 I & O for Last 24 hours: Intake & Output 02/24/25 02/25/25 02/26/25 02/27/25 23:59 23:59 23:59 23:59 Weight 81.647 kg Constitutional Constitutional: no acute distress *Routine HEENT Exam Head: Present normocephalic Eye: Present EOMI and PERRL ENT: Present mucous membranes moist *Routine Neck Exam Neck: Present supple; Absent lymphadenopathy *Routine Respiratory Exam Respiratory: Present CTA bilaterally *Routine Cardiovascular Exam Cardiovascular: Present RRR *Routine Abdominal Exam Abdominal: Present soft and normoactive bowel sounds; Absent tenderness *Routine Rectal Exam Rectal:: deferred *Routine Genitalia Exam Genitalia:: deferred *Routine Extremities Exam Extremities: Absent full ROM Comments: Right lower extremity shortened and rotated. Difficult ROM secondary to injury and pain. PMS intact *Routine Skin Exam Skin: Present warm; Absent rash *Routine Neurological Exam Neurological: Present alert and oriented X3 Assessment and Plan *Assessment and plan (1) Fall: Status: Acute Category: Medical Code(s): W19.XXXA - Unspecified fall, initial encounter (2) Hypertension: Status: Acute Category: Medical Code(s): I10 - Essential (primary) hypertension (3) Intertrochanteric fracture of right hip: Status: Acute Category: Medical Code(s): S72.141A - Displaced intertrochanteric fracture of right femur, initial encounter for closed fracture Plan #Fall #Intertrochanteric hip fracture of the right hip Dr. Robert consulted, operative plan for tomorrow. N.p.o. after midnight. Continue multimodal pain medication Will need PT and OT after surgery Right leg shortened rotated, PMS intact #Hypertension Continue home medications once reconciled
[2025-02-28] VITALS: BP 126/80; PULSE 89; RESP 13; TEMP 36.7; O2SAT 96; BMI 24.3
[2025-02-28 02:13] LABS: Troponin I < 0.01 ng/ml (0.00-0.034)
--- NOTE | 2025-02-28 02:37 | PC.NURSE ---
Pt new admit this shift. AOx4 with hip fracture. Fluids running at 75mL/hr per provider order. Pt has multiple skin tears to right arm that were cleaned and bandaged. Received pain meds on admission that have allowed pt to sleep. Currently resting in bed with eyes closed. Respirations even and unlabored. Bed is low, locked, and call light is in reach.
[2025-02-28 04:00] VITALS: BP 112/63; PULSE 63; RESP 18; TEMP 36.7; O2SAT 95; BMI 24.6
[2025-02-28] MEDS: MORPHINE 2MG/ML SYRINGE 2 MG IV ×3 (05:33→16:47)
[2025-02-28 06:12] LABS: Hematocrit 30.0 % (42.0-52.0); Immature Granulocytes % 0.3 %; Mean Corpuscular HGB Conc 33.7 g/dL (31.8-35.4); Mean Corpuscular Hemoglobin 32.4 pg (27.0-31.2); Mean Corpuscular Volume 96.2 fl (80-94); Nucleated Red Blood Cells % 0 %; Platelet Count 221 K/mm3 (142-424); Red Blood Count 3.12 M/mm3 (4.60-6.20); Red Cell Distribution Width-SD 48.9 fL; White Blood Count 9.7 K/mm3 (4.8-10.8)
[2025-02-28 06:25] LABS: Chloride 106 mmol/L (98-107); Potassium 4.0 mmoL/L (3.5-5.1); Sodium 134 mmol/L (136-145)
[2025-02-28 06:28] LABS: Anion Gap 11.0 mEq/L (5-15); Blood Urea Nitrogen 21 mg/dl (9-20); Calcium 8.1 mg/dl (8.4-10.2); Carbon Dioxide 21 mmol/L (22.0-30.0); Creatinine Clearance Estimated 59 mL/min (50-200); Creatinine,Serum 0.80 mg/dl (0.66-1.25); Estimated Glomerular Filt Rate 91 ml/min (>60); GFR (African American) 111 ML/MIN (>60); Glucose 115 mg/dl (74-100)
[2025-02-28 07:46] LABS: Hemoglobin 10.1 g/dL (14.1-18.0)
[2025-02-28 07:51] VITALS: BP 113/62; PULSE 74; RESP 16; TEMP 36.7; O2SAT 94
[2025-02-28] MEDS: HYDROCODONE/APAP 5/325 MG TABLET 1 TAB PO ×2 (09:16→22:31)
[2025-02-28] MEDS: 0.9 % SODIUM CHLORIDE 1000ML 1,000 ML 75 ML IV ×2 (09:47→22:33)
[2025-02-28 12:00] VITALS: BP 124/65; PULSE 69; RESP 18; TEMP 36.6; O2SAT 96
--- NOTE | 2025-02-28 13:16 | HMH.PHAINT1 ---
Pharmacy Intervention Comments: MED LIST COMPARED TO FILL HX.
--- NOTE | 2025-02-28 14:06 | P.CONS_ITS ---
History of Present Illness *Admission Date: 02/27/25 *History of present illness: This is a very pleasant 89-year-old male with past medical history of hypertension who presents emergency department today for right hip pain. He reports he was in the bed of his truck moving some items when he tripped over a log in his truck. Fell landing on his right side. When he landed he lowered his tailgate slid out of the back of his truck and crawled around to the front of the truck and was able to sit down called his family for help ambulance brought him to the emergency room found to have right intertrochanteric hip fracture. Admitted for definitive treatment hip fracture. Patient does live in [place] but has a home here in [place]. [facility] Disclaimer: The information contained in this section may have been updated after the patient was seen, as this information can be updated by other users. Medical History (Updated 02/28/25 @ 14:11 by Avery Robert DO) No significant past medical history Prostate cancer Family History (Updated 02/27/25 @ 22:45 by Alem Gomez RN) Other No significant family history Social History Smoking Status: Former smoker alcohol intake: current current occupational status: retired and other Travel in the last 8 weeks?: None Have you lived/traveled outside US in past 30 days?: No Contact w/someone who lives/traveled outside US past 30 days?: No Exposure to someone with infectious disease in past 14 days?: No Do you have a fever (greater than 100.4 F or 38 C)?: No Have you tested positive for COVID-19?: No Exposed to someone with COVID-19 in past 14 days?: No Do you have a sore throat?: No Do you have a cough?: No Do you have any weakness?: No Do you have any diarrhea?: No Are you experiencing any unusual bleeding?: No Do you have any muscle aches/pain?: No Do you have any abdominal pain?: No Are you experiencing loss of taste or smell?: No Meds Home Medications and Allergies Home Medications ?Medication ?Instructions ?Recorded ?Confirmed ?Type budesonide 3 mg 3 mg PO DAILY 02/27/2502/27 History capsule,delayed,extended release hydrochlorothiazide 12.5 mg capsule 12.5 mg PO DAILY 0 02/27/25 02/27/25 History metoprolol succinate 25 mg 25 mg PO DAILY 02/27/25 History tablet,extended release 24 hr New Prescriptions to Start Prescriptions: Allergies Allergy/AdvReac Type Severity Reaction Status Date / Time No Known Allergies Allergy Verified 02/27/25 18:54 Ortho Exam (Inpt) Vital signs and Labs for Last 24 Hours: Temp Pulse Resp BP Pulse Ox O2 Del Method 97.9 F 69 18 124/65 96 Room Air 02/28/25 12:00 02/28/25 12:00 02/28/25 12:00 02/28/25 12:00 02/28/25 12:00 02/28/25 12:00 Laboratory Results - last 24 hr 02/27/25 19:02: WBC 9.4, RBC 3.56 L, Hgb 11.6 L, Hct 33.4 L, MCV 93.8, MCH 32.6 H, MCHC 34.7, RDW 13.7, Plt Count 278, MPV 9.4, Neut % (Auto) 74.1, Lymph % (Auto) 13.6, [place] % (Auto) 9.7 H, Eos % (Auto) 1.6, Baso % (Auto) 0.7, Neut # (Auto) 7.0, Lymph # (Auto) 1.3, [place] # (Auto) 0.9, Eos # (Auto) 0.2, Baso # (Auto) 0.1, Sodium 135 L, Potassium 4.0, Chloride 106, Carbon Dioxide 21 L, Anion Gap 12.0, BUN 22 H, Creatinine 0.90, Estimated Creat Clear 60, Estimated GFR 80, Est GFR ( Amer) 97, Glucose 110 H, Calcium 8.6, Total Bilirubin 0.5, AST 43, ALT 23, Alkaline Phosphatase 84, Total Creatine Kinase 210 H, Troponin I < 0.01, NT-Pro-B Natriuret Pep 340, Total Protein 6.7, Albumin 4.0, Globulin 2.7, Albumin/Globulin Ratio 1.5 02/27/25 22:24: Troponin I < 0.01 02/28/25 01:30: Troponin I < 0.01 02/28/25 05:55: WBC 9.7, RBC 3.12 L, Hgb 10.1 L D, Hct 30.0 L, MCV 96.2 H, MCH 32.4 H, MCHC 33.7, RDW 13.9, Plt Count 221, MPV 9.7, Neut % (Auto) 77.0, Lymph % (Auto) 12.2, [place] % (Auto) 10.1 H, Eos % (Auto) 0.1, Baso % (Auto) 0.3, Neut # (Auto) 7.5, Lymph # (Auto) 1.2, [place] # (Auto) 1.0, Eos # (Auto) 0.0, Baso # (Auto) 0.0, Sodium 134 L, Potassium 4.0, Chloride 106, Carbon Dioxide 21 L, Anion Gap 11.0, BUN 21 H, Creatinine 0.80, Estimated Creat Clear 59, Estimated GFR 91, Est GFR ( Amer) 111, Glucose 115 H, Calcium 8.1 L I & O for Labs for Last 24 Hours: Intake & Output 02/25/25 02/26/25 02/27/25 02/28/25 23:59 23:59 23:59 23:59 Intake Total 862.5 / 862.5 Balance 862.5 / 862.5 Weight 180 lb 175 lb 14.862 oz Head: Present normocephalic and atraumatic Findings:: Right upper extremity and forearm shows laceration around the forearm with dressing in place and bruising of the wrist and upper part of the arm. He has some tenderness over the lateral aspect of the shoulder and has some difficulty with active abduction. Additional findings:: Right hip: Shortened and externally rotated pain with any attempt for active motion of the hip X-rays right hip show comminuted intertrochanteric hip fracture. Results Labs 02/28/25 05:55 02/28/25 05:55 Labs: Abnormal lab results 02/27/25 02/28/25 Range/Units 19:02 05:55 RBC 3.56 L 3.12 L (4.60-6.20) M/mm3 Hgb 11.6 L 10.1 L D (14.1-18.0) g/dL Hct 33.4 L 30.0 L (42.0-52.0) % MCV 96.2 H (80-94) fl MCH 32.6 H 32.4 H (27.0-31.2) pg [place] % (Auto) 9.7 H 10.1 H (1.7-9.3) % Sodium 135 L 134 L (136-145) mmol/L Carbon Dioxide 21 L 21 L (22.0-30.0) mmol/L BUN 22 H 21 H (9-20) mg/dl Glucose 110 H 115 H (74-100) mg/dl Calcium 8.1 L (8.4-10.2) mg/dl Total Creatine Kinase 210 H (55-170) U/L H & H 02/27/25 02/28/25 Range/Units 19:02 05:55 Hgb 11.6 L 10.1 L D (14.1-18.0) g/dL Hct 33.4 L 30.0 L (42.0-52.0) % All other labs normal. Assessment and Plan *Assessment and plan (1) Intertrochanteric fracture of right hip: Status: Acute Qualifiers: Encounter type: initial encounter Fracture type: closed Fracture alignment: displaced Qualified Code(s): S72.141A - Displaced intertrochanteric fracture of right femur, initial encounter for closed fracture Category: Medical Code(s): S72.141A - Displaced intertrochanteric fracture of right femur, initial encounter for closed fracture Plan Nature of the fracture requires operative intervention. Will plan on this tomorrow. Plan is cephalomedullary nailing of the right proximal femur. This will allow him for early weightbearing on the right side. He does have a plan to return home to [place]. This will certainly be delayed by few weeks slightly he would be a candidate for rehabilitation after surgery for rehab. To allow him then to be safe to be on the plane and get home within a couple weeks. PROPOSED SURGERY: Right hip cephalomedullary nailing proximal femur the risks and benefits of the proposed surgery were discussed in depth with the patient. Potential complications including inherent risk of anesthesia, infection, neurovascular damage, DVT, and rare but real potential loss of limb or life were all reviewed. Patient voices understanding and seems to understand to my satisfaction and wishes to proceed with surgery. I gave them adequate time to ask any questions they have pertaining to this surgery and answered all of them to the best of my ability. I gave them no guarantees in regards to outcomes of this surgery.
[2025-02-28 16:00] VITALS: BP 120/66; PULSE 89; RESP 16; TEMP 37.1; O2SAT 94
--- NOTE | 2025-02-28 16:29 | P.PN_ITS ---
Subjective *Date: 02/28/25 *Time: 16:29 Interval history: seen at bedside, no fevers overnight, denied CP, SOB, no complains today Exam Data for Last 24 hours Vital signs and Labs for Last 24 Hours: Temp Pulse Resp BP Pulse Ox O2 Del Method 98.8 F 89 16 120/66 94 L Room Air 02/28/25 16:00 02/28/25 16:00 02/28/25 16:00 02/28/25 16:00 02/28/25 16:00 02/28/25 16:00 Laboratory Results - last 24 hr 02/27/25 19:02: WBC 9.4, RBC 3.56 L, Hgb 11.6 L, Hct 33.4 L, MCV 93.8, MCH 32.6 H, MCHC 34.7, RDW 13.7, Plt Count 278, MPV 9.4, Neut % (Auto) 74.1, Lymph % (Auto) 13.6, Nuckolls % (Auto) 9.7 H, Eos % (Auto) 1.6, Baso % (Auto) 0.7, Neut # (Auto) 7.0, Lymph # (Auto) 1.3, Nuckolls # (Auto) 0.9, Eos # (Auto) 0.2, Baso # (Auto) 0.1, Sodium 135 L, Potassium 4.0, Chloride 106, Carbon Dioxide 21 L, Anion Gap 12.0, BUN 22 H, Creatinine 0.90, Estimated Creat Clear 60, Estimated GFR 80, Est GFR ( Amer) 97, Glucose 110 H, Calcium 8.6, Total Bilirubin 0.5, AST 43, ALT 23, Alkaline Phosphatase 84, Total Creatine Kinase 210 H, Troponin I < 0.01, NT-Pro-B Natriuret Pep 340, Total Protein 6.7, Albumin 4.0, Globulin 2.7, Albumin/Globulin Ratio 1.5 02/27/25 22:24: Troponin I < 0.01 02/28/25 01:30: Troponin I < 0.01 02/28/25 05:55: WBC 9.7, RBC 3.12 L, Hgb 10.1 L D, Hct 30.0 L, MCV 96.2 H, MCH 32.4 H, MCHC 33.7, RDW 13.9, Plt Count 221, MPV 9.7, Neut % (Auto) 77.0, Lymph % (Auto) 12.2, Nuckolls % (Auto) 10.1 H, Eos % (Auto) 0.1, Baso % (Auto) 0.3, Neut # (Auto) 7.5, Lymph # (Auto) 1.2, Nuckolls # (Auto) 1.0, Eos # (Auto) 0.0, Baso # (Auto) 0.0, Sodium 134 L, Potassium 4.0, Chloride 106, Carbon Dioxide 21 L, Anion Gap 11.0, BUN 21 H, Creatinine 0.80, Estimated Creat Clear 59, Estimated GFR 91, Est GFR ( Amer) 111, Glucose 115 H, Calcium 8.1 L I & O for Last 24 hours: Intake & Output 02/25/25 02/26/25 02/27/25 02/28/25 23:59 23:59 23:59 23:59 Intake Total 862.5 / 862.5 Balance 862.5 / 862.5 Weight 81.647 kg 79.8 kg Constitutional Constitutional: no acute distress *Routine HEENT Exam Head: Present normocephalic Eye: Present EOMI and PERRL ENT: Present mucous membranes moist *Routine Neck Exam Neck: Present supple; Absent lymphadenopathy *Routine Respiratory Exam Respiratory: Present CTA bilaterally *Routine Cardiovascular Exam Cardiovascular: Present RRR *Routine Abdominal Exam Abdominal: Present soft and normoactive bowel sounds; Absent tenderness *Routine Extremities Exam Extremities: Absent cyanosis, clubbing or edema *Routine Skin Exam Skin: Present warm; Absent rash *Routine Neurological Exam Neurological: Present alert and oriented X3 Assessment and Plan *Assessment and plan (1) Fall: Status: Acute Category: Medical Code(s): W19.XXXA - Unspecified fall, initial encounter (2) Hypertension: Status: Acute Category: Medical Code(s): I10 - Essential (primary) hypertension (3) Intertrochanteric fracture of right hip: Status: Acute Qualifiers: Encounter type: initial encounter Fracture type: closed Fracture alignment: displaced Qualified Code(s): S72.141A - Displaced intertrochanteric fracture of right femur, initial encounter for closed fracture Category: Medical Code(s): S72.141A - Displaced intertrochanteric fracture of right femur, initial enco unter for closed fracture Plan #Fall #Intertrochanteric hip fracture of the right hip Dr. Robert consulted, operative plan for tomorrow. N.p.o. after midnight. Continue multimodal pain medication Will need PT and OT after surgery Right leg shortened rotated, PMS intact #Hypertension Continue home medications once reconciled plan for surgery tomorrow by orthopedics, discussed with the patient
[2025-02-28 20:00] VITALS: BP 130/71; PULSE 88; RESP 16; TEMP 36.9; O2SAT 97
--- OUTSIDE RECORDS SUMMARY | 2025-02-28 20:04 | XMS_ITS | CCD ---
Author Name Interface, [id number] lity Address [place] [address] [facility] Address [place] breakthroughs[place] [address] Reason for Visit Social History
--- OUTSIDE RECORDS SUMMARY | 2025-02-28 20:04 | XMS_ITS | Clinical Summary ---
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
--- OUTSIDE RECORDS SUMMARY | 2025-02-28 20:04 | XMS_ITS | Encounter Summary ---
Author Organization [facility] Address [address] [place] [address] Care Team Providers Care Gas Charger Name Role Phone Darell Hernandez MD Primary Care Provider Encounter Details Date Type Department Care Team (Late st Contact Info) Description 07/13/2020 Released Orders Wellness Testing - [facility] [address] [place] [address] [facility] [address] [place] [address] Social History Tobacco Use Types Packs/Day Years Used Date Smoking Tobacco: Never Smokeless Tobacco: Never Alcohol Use Standard Drinks/Week Comments Yes 0 (1 standard drink = 0.6 oz pur e alcohol) Sex and Gender Information Value Date Recorded Sex Assigned at Not on file 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
--- OUTSIDE RECORDS SUMMARY | 2025-02-28 20:04 | XMS_ITS | Encounter Summary ---
Author Organization [facility] Address [address] [place] [address] Care Team Providers Care Treasury Assistant Name Role Phone Darell Hernandez MD Primary Care Provider Encounter Details Date Type Department Care Team (Late st Contact Info) Description 07/16/2020 Released Orders Wellness Testing - [facility] [address] [place] [address] [facility] [address] [place] [address] Social History Tobacco Use Types Packs/Day Years Used Date Smoking Tobacco: Never Smokeless Tobacco: Never Alcohol Use Standard Drinks/Week Comments Yes 0 (1 standard drink = 0.6 oz pur e alcohol) Sex and Gender Information Value Date Recorded Sex Assigned at Not on file 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
[2025-03-01] VITALS (16 sets, daily range): BP systolic 84–150; BP diastolic 56–80; PULSE 67–127; RESP 16–18; TEMP 36.4–37.1; O2SAT 90–98; BMI 24.6
--- NOTE | 2025-03-01 01:41 | PC.NURSE ---
Pt AOx4. Has been NPO since 0000 for surgery in the morning. Consent is signed and in the chart. Pt has had some pain this shift with relief from prn pain meds. Currently resting in bed with eyes open. Respirations even and unlabored. Denies pain or any additional needs at this time. Bed is low, locked, and call light is in reach.
[2025-03-01] MEDS: MORPHINE 2MG/ML SYRINGE 2 MG IV ×3 (06:13→23:21)
--- NOTE | 2025-03-01 07:47 | EXP.ANES.CKL ---
[facility] Disclaimer: The information contained in this section may have been updated after the patient was seen, as this information can be updated by other users. Medical History (Updated 02/28/25 @ 14:11 by Avery Robert DO) No significant past medical history Prostate cancer Family History (Updated 02/27/25 @ 22:45 by Alem Gomez RN) Other No significant family history Social History Smoking Status: Former smoker alcohol intake: current substance use type: denies use current occupational status: retired and other Travel in the last 8 weeks?: None [facility] Anesthesia Checklist Patient Identification Patient Identification: Arm Band Structural Data Admitted From: Inpatient Planned Operative Procedure/s: Cephalomedullary Nailing Right Femur Consent for Planned Operative Procedure(s) Verified: Yes Verified Documents: Surgical Consent and History and Physical NPO Status Verified Time NPO: 00:00 Additional verifications Anesthesia Reactions: No Airway Assessment Mallampati Score:: Class II C-Spine Mobility Assessed: Yes TMJ Mobility Assessed: Yes Dentition: Good Dentition Neurological Assessment Level of Consciousness: Awake, Alert and Appropriate Anesthesia Plan Anesthesia Risk discussed: Yes Anesthesia Plan: Verified ASA Class: II Anesthesia Type: MAC w/Spinal
[2025-03-01] MEDS: 0.9 % SODIUM CHLORIDE 100 ML 200 ML IV (11:21)
[2025-03-01] MEDS: CEFAZOLIN 2GM VIAL 2 GM (11:21)
--- NOTE | 2025-03-01 12:11 | SUR.OPER ---
patient was brought into pre op at 7:45 03/01/25, upon opening instruments for case we realized 2 sets were not properly sterilized and needed to be re processed. patient was then taken back up to room on the [facility] floor to wait for instruments to finish the sterilization process. at 11 patient was brought back into pre op and at 1118 instruments finished and passed the sterilization process. we then proceeded with bringing patient into the OR for surgery.
--- NOTE | 2025-03-01 13:02 | P.OP_ITS ---
Date of procedure: 03/01/25 Pre-op Diagnosis:: Right intertrochanteric hip fracture Post-op Diagnosis:: Same Procedure performed:: Cephalomedullary nail right proximal femur Surgeon:: Avery Robert DO Quill Cleaning Machine Operator(s):: Brayan RAMIREZ DISTILLERY WORKER:: Bobby Palomino Anesthesia: spinal Estimated blood loss (mL): 50 Operative findings:: Patient has a very low neck angle. Operative note:: Patient identified preoperatively. Right hip marked with yes my initials. Transported operative suite. Placed upon the operating bed after undergoing a spinal anesthesia. And Elaine catheter placed. On the radiolucent fracture table the right leg was placed in line traction left leg in semilithotomy position. X-ray was brought into identify fracture of the intertrochanteric area area of the right hip. Using the fracture table reduction was performed with inline traction and rotation. Reduction was viewed on the AP and lateral views. Once adequate duction was performed x-ray was brought in to find the landmarks of the hip the tip of the greater trochanter was marked a 2 fingerbreadth incision 2 fingerbreadths above the greater trochanter was utilized to cut through the IT band guidewire was placed in the tip of the trochanter and placed down through the femur. Opening reamer was used to make a hole in the tip of the greater trochanter followed by the 12 mm short TFN nail. The nail was placed over the guidewire and sunk to appropriate depth. The guide was utilized for the triple cannula. The guidewire was placed through the lateral femur into the head this was visualized both on AP and lateral views. Patient had low neck angle. Nail was taken to appropriate depth to allow for proper angle of the helical blade. Lateral cortex breaker was utilized followed by the step reamer to a depth of 120 mm which was measured off of the guidewire. Helical blade was then taken and impacted into place viewed both on the AP and lateral views to the proper depth. The flexible screwdriver was then utilized to lock the sliding screw. Attention was then brought distally where the distal locking guide was placed drilled bicortically and size 38 mm screw was placed in the distal locking guide. X-rays were taken AP lateral views and saved. Irrigation wound performed. IT band closed with 0 Vicryl sutures subcutaneous with 2-0 Vicryl suture surgical clips in the skin for closure sterile dressing placed. Patient waken from anesthesia taken recovery in stable condition. Condition: stable Disposition: PACU Complications:: None apparent
--- NOTE | 2025-03-01 13:16 | P.PNANES_ITS ---
[facility] Anesthesia Record Part I Anesthesia Record I Intake, IV Amount: 1,000 Hydration: Adequate Estimated blood loss (mL): 50 Urine output (mL): 200 Blood Products used (#): none Blood Pressure: 84/59 SaO2: 95 Pulse Rate: 95 Airway Patency: Patent Respiratory Rate: 16 Temperature: 97.6 F Patient is:: Drowsy and Stable Stable to PACU at:: 13:00
--- NOTE | 2025-03-01 13:30 | XR_ITS ---
PROCEDURE INFORMATION: Exam: XR Right Shoulder Exam date and time: 03/01/2025 1:38 PM Age: 89 years old Clinical indication: Pain; Shoulder; Right; Additional info: Right shoulder pain TECHNIQUE: Imaging protocol: Radiologic exam of the right shoulder. Views: 2 or more views. COMPARISON: CR XR SHOULDER RT MIN 2V 02/27/2025 7:48 PM FINDINGS: Bones/joints: Possible subluxation or dislocation of the glenohumeral joint. Recommend axillary view to better delineate the alignment between the glenoid and humeral head. Soft tissues: Soft tissue swelling of the shoulder IMPRESSION: Possible subluxation or dislocation of the glenohumeral joint. Recommend axillary view to better delineate the alignment between the glenoid and humeral head.
--- NOTE | 2025-03-01 15:01 | XR_ITS ---
PROCEDURE INFORMATION: Exam: XR Right Hip Exam date and time: 03/01/2025 3:00 PM Age: 89 years old Clinical indication: Device placement; Other: Tfn; Additional info: R tfn today TECHNIQUE: Imaging protocol: Radiologic exam of the right hip. Views: 2 or 3 views hip with pelvis when performed. COMPARISON: CR XR HIP RT 2-3V W/PELVIS 02/27/2025 7:48 PM FINDINGS: Bones/joints: Screw in the left femoral head and neck intramedullary ramona in the proximal right femur.. Soft tissues: Unremarkable. Other findings: 3 Fluoroscopic spot films. IMPRESSION: Screw in the left femoral head and neck intramedullary ramona in the proximal right femur..
[2025-03-01] MEDS: 0.9 % SODIUM CHLORIDE 1000ML 1,000 ML 75 ML IV (15:39)
--- NOTE | 2025-03-01 16:46 | EXP.PN ---
Subjective *Date: 03/01/25 *Time: 16:46 Interval history: seen at bedside, no fevers overnight, denied CP, SOB, no complains today, waiting for surgery Exam Data for Last 24 hours Vital signs and Labs for Last 24 Hours: Temp Pulse Resp BP Pulse Ox O2 Del Method 97.6 F 70 16 116/61 96 Room Air 03/01/25 13:30 03/01/25 13:30 03/01/25 13:30 03/01/25 13:30 03/01/25 13:30 03/01/25 15:00 I & O for Last 24 hours: Intake & Output 02/26/25 02/27/25 02/28/25 03/01/25 23:59 23:59 23:59 23:59 Intake Total 2360.0 / 2360.0 1999 / 1999 Output Total 450 / 450 650 / 650 Balance 1910.0 / 1910.0 1350 / 1350 Weight 81.647 kg 79.8 kg 79.861 kg Constitutional Constitutional: no acute distress *Routine HEENT Exam Head: Present normocephalic Eye: Present EOMI and PERRL ENT: Present mucous membranes moist *Routine Neck Exam Neck: Present supple; Absent lymphadenopathy *Routine Respiratory Exam Respiratory: Present CTA bilaterally *Routine Cardiovascular Exam Cardiovascular: Present RRR *Routine Abdominal Exam Abdominal: Present soft and normoactive bowel sounds; Absent tenderness *Routine Extremities Exam Extremities: Absent cyanosis, clubbing or edema *Routine Skin Exam Skin: Present warm; Absent rash *Routine Neurological Exam Neurological: Present alert and oriented X3 Assessment and Plan *Assessment and plan (1) Fall: Status: Acute Category: Medical Code(s): W19.XXXA - Unspecified fall, initial encounter (2) Hypertension: Status: Acute Category: Medical Code(s): I10 - Essential (primary) hypertension (3) Intertrochanteric fracture of right hip: Status: Acute Qualifiers: Encounter type: initial encounter Fracture type: closed Fracture alignment: displaced Qualified Code(s): S72.141A - Displaced intertrochanteric fracture of right femur, initial encounter for closed fracture Category: Medical Code(s): S72.141A - Displaced intertrochanteric fracture of right femur, initial encounter for closed fracture Plan #Fall #Intertrochanteric hip fracture of the right hip Continue multimodal pain medication Will need PT and OT after surgery Right leg shortened rotated, PMS intact plan for Cephalomedullary nail right proximal femur, consult PT/OT #Hypertension Continue home medications once reconciled plan for surgery today by orthopedics, planned procedure - Cephalomedullary nail right proximal femur, discussed with the patient
[2025-03-01] MEDS: OXYCODONE 5MG W/APAP 325MG TABLET 1 EACH PO (17:08)
[2025-03-01 17:53] LABS: Microscopic,Cath URINE MICROSCOPIC (MICROSCOPIC)
[2025-03-01 17:57] LABS: Appearance,Urine/Cath CLEAR (Clear); Blood, Urine/Cath Negative (Negative); Color,Urine/Cath YELLOW (Yellow); Glucose,Urine/Cath (UA) Negative (Negative); Ketones,Urine/Cath 2+ (Negative); Leukocyte Esterase,Cath Negative (Negative); Nitrate,Cath Negative (Negative); PH,Urine/Cath 6.0 (5.0-8.5); Protein,Urine/Cath Negative (Negative); Specific Gravity, Urine/Cath >= 1.030 (1.005-1.030); Urobilinogen,Cath 0.2 EU/dl (0.2)
[2025-03-01 18:04] LABS: Bilirubin,Cath 1+ (Negative)
[2025-03-01 18:29] LABS: WBC,Urine/Cath Occasional #/hpf (0-3)
[2025-03-01] MEDS: ASPIRIN 81MG CHEWABLE TABLET 81 MG PO (20:13)
[2025-03-02] VITALS: BP 142/74; PULSE 87; RESP 16; TEMP 37; O2SAT 93
--- NOTE | 2025-03-02 02:18 | PC.NURSE ---
Pt AOx4. Assisted pt to sit on the side of the bed earlier. Pt has had some pain that has been treated with prn pain medication. Resting in bed with eyes closed. Respirations even and unlabored. Bed is low, locked, and call light is in reach.
[2025-03-02 04:00] VITALS: BP 149/68; PULSE 88; RESP 16; TEMP 36.8; O2SAT 94; BMI 24.9
[2025-03-02] MEDS: OXYCODONE 5MG W/APAP 325MG TABLET 1 EACH PO ×2 (05:46→11:55)
[2025-03-02 06:28] LABS: Hematocrit 25.3 % (42.0-52.0); Hemoglobin 8.5 g/dL (14.1-18.0); Immature Granulocytes % 0.5 %; Mean Corpuscular HGB Conc 33.6 g/dL (31.8-35.4); Mean Corpuscular Hemoglobin 32.8 pg (27.0-31.2); Mean Corpuscular Volume 97.7 fl (80-94); Nucleated Red Blood Cells % 0 %; Platelet Count 177 K/mm3 (142-424); Red Blood Count 2.59 M/mm3 (4.60-6.20); Red Cell Distribution Width-SD 49.2 fL; White Blood Count 10.3 K/mm3 (4.8-10.8)
[2025-03-02 06:34] LABS: Chloride 107 mmol/L (98-107); Potassium 4.0 mmoL/L (3.5-5.1); Sodium 132 mmol/L (136-145)
[2025-03-02 06:37] LABS: Anion Gap 10.0 mEq/L (5-15); Blood Urea Nitrogen 21 mg/dl (9-20); Calcium 7.8 mg/dl (8.4-10.2); Carbon Dioxide 19 mmol/L (22.0-30.0); Creatinine Clearance Estimated 59 mL/min (50-200); Creatinine,Serum 0.80 mg/dl (0.66-1.25); Estimated Glomerular Filt Rate 91 ml/min (>60); GFR (African American) 111 ML/MIN (>60); Glucose 120 mg/dl (74-100)
--- NOTE | 2025-03-02 07:32 | EXP.ANES.II ---
[facility] Anesthesia Record Part II Anesthesia Record Part II Discharge Time: 13:30 Destination: Medical Surgical Department PACU nurse assessment reviewed?: Yes Patient Condition:: Good Anesthesia Complications:: None Swallowing reflex intact?: Yes Airway Patency: Patent Cyanosis?: No Blood Pressure: 116/61 SaO2: 96 Respiratory Rate: 16 Pulse Rate: 70 Temperature: 97.6 F Mental Status: Alert & Oriented Pain level:: 0 Nausea and/or vomitting:: None Intake, IV Amount: 0 Hydration: Adequate
[2025-03-02 07:33] VITALS: BP 116/61; PULSE 70; RESP 16; TEMP 36.4; O2SAT 96
[2025-03-02 08:00] VITALS: BP 134/57; PULSE 70; RESP 19; TEMP 36.8; O2SAT 96
[2025-03-02] MEDS: ASPIRIN 81MG CHEWABLE TABLET 81 MG PO (09:14)
--- NOTE | 2025-03-02 09:27 | CARE MANAGER ---
Addendum entered by Daina Madden RN 03/02/25 15:25: Patient will discharge [facility] SN[facility] bed [facility] today. Addendum entered by Daina Madden RN 03/02/25 13:06: [facility] has received authorization from insurance. Patient will discharge to [facility] once CT of shoulder has been completed, unless he needs a procedure for repair. Addendum entered by Daina Madden RN 03/02/25 11:49: [facility] has offered a bed and started authorization. Patient is aware. Original Note: Spoke with patient and at bedside this morning. Patient will be seen by PT/OT later this morning and will likely need SNF placement. Patient Choice letter signed for [facility] (1) and [facility] (2). Referral printed and faxed to [facility]. Patient will require an auth, which should be started today.
--- NOTE | 2025-03-02 09:51 | HMH.PTEV ---
Physical Therapy Evaluation Rehab PT IP Evaluation Start: 02/27/25 22:55 Freq: ONCE Status: Active Protocol: Document 03/02/25 09:41 ERNESTO (Rec: 03/02/25 09:51 ERNESTO [id number]) Subjective/History History History Pt is an 89 y/o male who presents s/p cephalomedullary nailing of right proximal femur 03/01/25. Subjective Subjective Pt lives with his in a two-story home. Pt's able to provide 24/7 assistance if needed. Pt is normally IND with all mobility. New diagnosis of No cancer in past 12 months? [facility] How much help from another person do you currently need... Turning from your A lot back to your side while in a flat bed without using bedrails? Moving from lying on A lot back to sitting on the side of a flat bed without using bedrails? Moving to and from a A lot bed to a chair ( including a wheelchair)? Standing up from a A lot chair using your arms? (e.g., wheelchair, bedside chair) Walking in hospital A lot room? Climbing 3-5 steps A lot with a railing? Mobility Score 12 Mobility Level [facility] Mobility 4 Move to chair/commode Mobility Calculator Rehab PT IP Eval Objective Appearance Patient Behavior Appropriate,Cooperative Patient Orientation Person,Place,Situation Difficulty following none instructions Speech Pattern Clear Ambulation Patient Able to No Ambulate Balance Ability to Arise Able, uses arms to help Sitting Balance Steady, safe Standing Balance Unsteady Transfers Bed Transfer Ability Maximum x 1 (75% assist) Sit to Stand Bed Minimal x 2 (25% assist) Transfer Ability Rehab PT IP prob,goals,plan Problems Date of Evaluation: 03/02/25 PT IP Problems Bed Mobility,Transfers,Gait,Balance,Self care,Safety Rehab Potential Rehab Potential Good Plan PT Intervention Plan Bed Mobility,Transfers,Gait,Balance,Self care,Safety, Therapeutic Exercise Other Intervention 1-2 times Plan PT Plan Frequency Daily Duration Goals Met Discharge Goals Bed Transfer Ability Moderate x 1 (50% assist) Sit to Stand Chair Minimal x 1 (25% assist) Transfer Ability Ambulation Assistive Rolling Walker Device Ambulation Distance 5 (feet) Discharge Plan PT Discharge Plan Initial physical therapy evaluation performed. Patient presents below baseline at this time in functional mobility, transfers, and strength. Pt not safe to return home at this time d/t current level of functional mobility. PT recommending short-term rehabilitation stay upon d/c from [facility]. Pt would benefit from skilled PT while at [facility] to prevent further functional decline and maximize safety with mobility. Eval Complexity Eval Charge Codes 19954 - Moderate Complexity PHYSICIAN CERTIFICATION: I certify the specified therapy services for Sam Yañez are required, authorized, and reviewed every 30 days.
--- NOTE | 2025-03-02 09:56 | HMH.OTEV ---
OT Inpatient Evaluation Rehab OT IP Evaluation Start: 03/01/25 16:48 Freq: ONCE Status: Active Protocol: Document 03/02/25 09:49 [facility] (Rec: 03/02/25 09:55 [facility] [id number]) Rehab OT IP Assessment Subjective History Pt oriented x 3 on arrival. Pt admitted on 02/27/25 due to R hip fx after a fall requiring a Cephalomedullary nail right proximal femur on 03/01/25. History and physicall: This is a very pleasant 89-year-old male with past medical history of hypertension who presents emergency department today for right hip pain. He reports he was in the bed of his truck moving some items when he tripped over a log in his truck. Fell landing on his right side. States that he laid there for some time, approximately 30 minutes. Reports he hit his head but does not feel like he had any LOC. Denies any chest pain, shortness of breath prior to fall. States he was in his normal state of health when he tripped Subjective Pt reports prior to being in the hospital, he lived at home with his . Pt claims normally he is independent with all ADLs and IADLs. He also still drives. He does not require any type of AE during functional transfers. Objective Patient Orientation Person,Place,Birthday Right Upper Mod Limitation 50% Extremity Gross ROM Left Upper Extremity WFL Gross ROM Shoulder ROM Muscle Weakness Limitations Elbow ROM Muscle Weakness Limitations Wrist Limitations of Muscle Weakness Range of Motion Bed Mobility bed mobility-scooting,bed mobility - supine/sit Assist Level Maximum x 2 (75% assist) Transfer Training Sit/Stand Transfer Assist Level Minimal x 2 (25% assist) Rehab OT IP prob,goals,plan Problems Date of Evaluation: 03/02/25 OT IP Problems Bed Mobility,Transfers,Balance,Self care,Safety Rehab Potential Rehab Potential Good Equipment Needs Assistive Devices Rolling / Wheeled Walker Plan OT intervention Plan Bed Mobility,Transfers,Balance,Self care,Safety, Therapeutic Exercise OT Plan Frequency Daily Duration LOS Discharge Goals Bed Mobility Ability Assistance x1 Sit to Stand Chair Minimal x 1 (25% assist) Transfer Ability Chair Transfer Minimal x 1 (25% assist) Ability Chair Transfer Stand Step Pivot Technique Chair Transfer Rolling Walker Assistive Devices Lower Body Dressing Moderate Assistance Ability Upper Body Dressing Minimal Assistance Ability Performing Toilet Moderate Assistance Hygiene Ability Overall Commode/ Minimal Assistance Toilet Transfer Ability Commode/Toilet Sit to/from Ambulatory Transfer Technique Commode/Toilet Grab Bars Transfer Assistive Devices Discharge Plan OT Discharge Plan Pt will continue to be seen for OT services while at [facility]. Pt would benefit most from short term rehab at SNF following discharge from hospital. Continued skilled therapy is important in order for patient to improve strength, safety, endurance, ADL independence, and functional transfers to reach PLOF. Eval Complexity Eval Charge Codes 31174 - Moderate Complexity PHYSICIAN CERTIFICATION: I certify the specified therapy services for Sam Yañez are required, authorized, and reviewed every 30 days.
[2025-03-02 11:43] VITALS: BP 119/58; PULSE 100; RESP 18; O2SAT 96
[2025-03-02] MEDS: METOPROLOL SUCCINATE XL 25MG TABLET 25 MG PO (11:53)
--- NOTE | 2025-03-02 12:03 | CT_ITS ---
FINAL REPORT TECHNIQUE: Thin section axial images were obtained through the right shoulder without contrast. Reconstruction images were obtained from the axial data. Exam was performed using dose reduction technique. CLINICAL HISTORY: Right shoulder injury COMPARISON: None FINDINGS: There is a Hill-Sachs deformity of the lateral humeral head. There is no acute fracture or dislocation. 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 There is no evidence of AC separation. The humeral head is high riding. Rotator cuff injury not excluded. Limited evaluation of the right lung demonstrates subpleural right upper lobe nodule measuring 4 mm on series 2 image 58. Soft tissues are otherwise without acute abnormality. IMPRESSION: No acute fracture or dislocation. Hill-Sachs deformity suggesting prior anterior dislocation. High riding humeral head. Rotator cuff injury not excluded. Consider MRI. Pulmonary nodule. Consider follow-up CT chest after risk stratification per Fleischner criteria. Reviewed, Interpreted and Dictated by Kateryna Hernandez MD Transcribed by Jyothi James Authenticated and [facility]
--- NOTE | 2025-03-02 12:48 | EXP.ORTH.PN ---
Subjective *Date: 03/02/25 *Time: 12:48 Interval history: Overall doing well. He still up with help today with therapy. Has been sitting on the side of the bed with minimal difficulty. Still has some complaints of some difficulty moving the right shoulder. He is able to passively move the shoulder above his head with minimal difficulty but active range of motion is hard for him. No other complaints. Ortho Exam (Inpt) Vital signs and Labs for Last 24 Hours: Temp Pulse Resp BP Pulse Ox O2 Del Method 98.3 F 100 H 18 119/58 L 96 Room Air 03/02/25 08:00 03/02/25 11:43 03/02/25 11:43 03/02/25 11:43 03/02/25 11:43 03/02/25 11:43 Laboratory Results - last 24 hr 03/01/25 11:40: Urine Color Yellow, Urine Appearance Clear, Urine pH 6.0, Ur Specific [place] >= 1.030, Urine Protein Negative, Urine Glucose (UA) Negative, Urine Ketones 2+, Urine Blood Negative, Urine Nitrate Negative, Urine Bilirubin 1+ A, Urine Urobilinogen 0.2, Ur Leukocyte Esterase Negative, Urine RBC None, Urine WBC Occasional, Ur Squamous Epith Cells None, Urine Bacteria None 03/02/25 06:08: WBC 10.3, RBC 2.59 L, Hgb 8.5 L, Hct 25.3 L, MCV 97.7 H, MCH 32.8 H, MCHC 33.6, RDW 13.6, Plt Count 177, MPV 10.4, Neut % (Auto) 73.1, Lymph % (Auto) 11.7, [place] % (Auto) 13.6 H, Eos % (Auto) 0.7, Baso % (Auto) 0.4, Neut # (Auto) 7.6, Lymph # (Auto) 1.2, [place] # (Auto) 1.4 H, Eos # (Auto) 0.1, Baso # (Auto) 0.0, Sodium 132 L, Potassium 4.0, Chloride 107, Carbon Dioxide 19 L, Anion Gap 10.0, BUN 21 H, Creatinine 0.80, Estimated Creat Clear 59, Estimated GFR 91, Est GFR ( Amer) 111, Glucose 120 H, Calcium 7.8 L I & O for Labs for Last 24 Hours: Intake & Output 02/27/25 02/28/25 03/01/25 03/02/25 23:59 23:59 23:59 23:59 Intake Total 2360.0 / 2360.0 2290 / 2290 590 / 590 Output Total 450 / 450 650 / 650 200 / 200 Balance 1910.0 / 1910.0 1640 / 1640 390 / 390 Weight 180 lb 175 lb 14.862 oz 176 lb 1 oz 178 lb 1 oz Additional findings:: Right hip dressing clean dry and intact. Compartments soft. Assessment and Plan *Assessment and plan (1) Intertrochanteric fracture of right hip: Problem Comment: Status post cephalomedullary nailing right proximal femur date of surgery 03/01/2025 Status: Acute Qualifiers: Encounter type: initial encounter Fracture type: closed Fracture alignment: displaced Qualified Code(s): S72.141A - Displaced intertrochanteric fracture of right femur, initial encounter for closed fracture Category: Medical Code(s): S72.141A - Displaced intertrochanteric fracture of right femur, initial encounter for closed fracture Plan CT scan right shoulder no contrast. Performed today continue with working with therapy. Patient is a candidate for rehabilitation at [facility]. Weightbearing as tolerated on the walker. He will return to clinic for staple removal in [address] scan shoulder
[2025-03-02 13:55] VITALS: BMI 24.9
--- NOTE | 2025-03-02 15:11 | EXP.DC.SUM ---
General Admission date:: 02/27/25 HPI HPI HPI: This is a very pleasant 89-year-old male with past medical history of hypertension who presents emergency department today for right hip pain. He reports he was in the bed of his truck moving some items when he tripped over a log in his truck. Fell landing on his right side. When he landed he lowered his tailgate slid out of the back of his truck and crawled around to the front of the truck and was able to sit down called his family for help ambulance brought him to the emergency room found to have right intertrochanteric hip fracture. Admitted for definitive treatment hip fracture. Patient does live in [place] but has a home here in [place]. Hospital Course Hospital Course Hospital Course: Sam Yañez is a 89-year-old male who presented after a fall at the back of his truck bed and was admitted for right intertrochanteric hip fracture. #Fall #Intertrochanteric hip fracture of the right hip ? Orthopedic surgery consulted, s/p cephalomedullary nailing of right proximal femur on 10/30/2024. Patient tolerated procedure well. ? Aspirin 81 mg twice daily for DVT prophylaxis. ? Weightbearing as tolerated. ? PT/OT consulted, recommended SNF. [facility] accepted patient. Transferred in stable condition. ? Follow-up with orthopedic surgery in 2 weeks. #Suspected rotator cuff injury #High riding humeral head #Hill-Sachs deformity right shoulder ? Noted on CT shoulder. Discussed with orthopedic surgery, will address this on an outpatient basis. ? Follow-up with orthopedic surgery in 2 weeks. #Hypertension ? Continue home metoprolol succinate, discontinued home hydrochlorothiazide. Total time spent on discharge: 33 minutes on chart review, counseling, documentation, and direct care with patient. Exam Data for Last 24 hours Vital signs and Labs for Last 24 Hours: Temp Pulse Resp BP Pulse Ox O2 Del Method 98.3 F 100 H 18 119/58 L 96 Room Air 03/02/25 08:00 03/02/25 11:43 03/02/25 11:43 03/02/25 11:43 03/02/25 11:43 03/02/25 13:00 Laboratory Results - last 24 hr 03/01/25 11:40: Urine Color Yellow, Urine Appearance Clear, Urine pH 6.0, Ur Specific [place] >= 1.030, Urine Protein Negative, Urine Glucose (UA) Negative, Urine Ketones 2+, Urine Blood Negative, Urine Nitrate Negative, Urine Bilirubin 1+ A, Urine Urobilinogen 0.2, Ur Leukocyte Esterase Negative, Urine RBC None, Urine WBC Occasional, Ur Squamous Epith Cells None, Urine Bacteria None 03/02/25 06:08: WBC 10.3, RBC 2.59 L, Hgb 8.5 L, Hct 25.3 L, MCV 97.7 H, MCH 32.8 H, MCHC 33.6, RDW 13.6, Plt Count 177, MPV 10.4, Neut % (Auto) 73.1, Lymph % (Auto) 11.7, [place] % (Auto) 13.6 H, Eos % (Auto) 0.7, Baso % (Auto) 0.4, Neut # (Auto) 7.6, Lymph # (Auto) 1.2, [place] # (Auto) 1.4 H, Eos # (Auto) 0.1, Baso # (Auto) 0.0, Sodium 132 L, Potassium 4.0, Chloride 107, Carbon Dioxide 19 L, Anion Gap 10.0, BUN 21 H, Creatinine 0.80, Estimated Creat Clear 59, Estimated GFR 91, Est GFR ( Amer) 111, Glucose 120 H, Calcium 7.8 L I & O for Last 24 hours: Intake & Output 02/27/25 02/28/25 03/01/25 03/02/25 23:59 23:59 23:59 23:59 Intake Total 2360.0 / 2360.0 2290 / 2290 1010 / 1010 Output Total 450 / 450 650 / 650 200 / 200 Balance 1910.0 / 1910.0 1640 / 1640 810 / 810 Weight 81.647 kg 79.8 kg 79.861 kg 80.768 kg Constitutional Constitutional: no acute distress *Routine HEENT Exam Head: Present normocephalic Eye: Present EOMI and PERRL ENT: Present mucous membranes moist *Routine Neck Exam Neck: Present supple; Absent lymphadenopathy *Routine Respiratory Exam Respiratory: Present CTA bilaterally *Routine Cardiovascular Exam Cardiovascular: Present RRR *Routine Abdominal Exam Abdominal: Present soft and normoactive bowel sounds; Absent tenderness *Routine Extremities Exam Extremities: Absent cyanosis, clubbing or edema *Routine Skin Exam Skin: Present warm; Absent rash *Routine Neurological Exam Neurological: Present alert and oriented X3 Results Data Completed and Pending Labs on day of discharge: Labs from last 24 hours 03/02/25 03/01/25 06:08 11:40 WBC 10.3 RBC 2.59 L Hgb 8.5 L Hct 25.3 L MCV 97.7 H MCH 32.8 H MCHC 33.6 RDW 13.6 Plt Count 177 MPV 10.4 Neut % (Auto) 73.1 Lymph % (Auto) 11.7 [place] % (Auto) 13.6 H Eos % (Auto) 0.7 Baso % (Auto) 0.4 Neut # (Auto) 7.6 Lymph # (Auto) 1.2 [place] # (Auto) 1.4 H Eos # (Auto) 0.1 Baso # (Auto) 0.0 Sodium 132 L Potassium 4.0 Chloride 107 Carbon Dioxide 19 L Anion Gap 10.0 BUN 21 H Creatinine 0.80 Estimated Creat Clear 59 Estimated GFR 91 Est GFR ( Amer) 111 Glucose 120 H Calcium 7.8 L Urine Color Yellow Urine Appearance Clear Urine pH 6.0 Ur Specific [place] >= 1.030 Urine Protein Negative Urine Glucose (UA) Negative Urine Ketones 2+ Urine Blood Negative Urine Nitrate Negative Urine Bilirubin 1+ A Urine Urobilinogen 0.2 Ur Leukocyte Esterase Negative Urine RBC None Urine WBC Occasional Ur Squamous Epith Cells None Urine Bacteria None DS: Diagnosis Discharge Diagnosis (1) Intertrochanteric fracture of right hip: Status: Acute Code(s): S72.141A - Displaced intertrochanteric fracture of right femur, initial encounter for closed fracture Qualifiers: Encounter type: initial encounter Fracture type: closed Fracture alignment: displaced Qualified Code(s): S72.141A - Displaced intertrochanteric fracture of right femur, initial encounter for closed fracture Problem details: Status post cephalomedullary nailing right proximal femur date of surgery 03/01/2025 Meds Home Medications and Allergies Home Medications ?Medication ?Instructions ?Recorded ?Confirmed ?Type budesonide 3 mg 3 mg PO DAILY 02/27/25 02/27/25 History capsule,delayed,extended release metoprolol succinate 25 mg 25 mg PO DAILY 02/27/25 02/27/25 History tablet,extended release 24 hr aspirin 81 mg chewable tablet 81 mg PO BID 30 days #60 tabs 03/02/25 Rx oxycodone-acetaminophen 5 mg-325 1 tab PO Q4HP PRN Moderate Pain 03/02/25 Rx mg tablet (4-6) 3 days #18 tabs New Prescriptions to Start Prescriptions: Isacc Crooks oxycodone-acetaminophen Isacc Bolden Allergies Allergy/AdvReac Type Severity Reaction Status Date / Time No Known Allergies Allergy Verified 02/27/25 18:54 Discharge Plan Disposition Patient Disposition: [facility] Condition: Fair Discharge Order Discharge Orders: Discharge Order (Routine); Ordered 03/02/25 Ordered By: Isacc Bolden Follow up Plan Follow up with: Avery Robert DO [Staff Physician, Orthopedics] - 2 weeks Prescriptions/Medication Reconciliation: New aspirin 81 mg Tablet,Chewable 81 mg PO BID 30 Days Qty: 60 0RF oxycodone-acetaminophen 5-325 mg Tablet 1 tab PO Q4HP PRN (Reason: Moderate Pain (4-6)) 3 Days Qty: 18 0RF Continued metoprolol succinate 25 mg tablet extended release 24 hr 25 mg PO DAILY budesonide 3 mg capsule,delayed,extend.release 3 mg PO DAILY Discontinued hydrochlorothiazide 12.5 mg capsule 12.5 mg PO DAILY Problem Reconciliation Problems Reviewed?: Yes Patient Discharge Instructions Patient Instructions: DI for Hip Fracture, DI for Hip Replacement, DI for Surgical Site Infection, Catheter-Associated Urinary Tract Infection Print Language: Australian Providers Primary Care Provider: Provider,Referral Admit Provider: Darell Jefferson Attending Provider: Darell Jefferson
--- NOTE | 2025-03-02 17:20 | PC.NURSE ---
REPORT CALLED TO [facility]ANCE NOTIFIED ABOUT TRANSPORT. DRESSING TO [facility] CHANGED THIS SHIFT. MEDICATED PER SEP FOR DISCOMFORT.
== END 2025-03-02 17:30 | DRG 481 ==
LOC: ER 21:04 → 2ND 21:10
PROVIDERS: Internal Medicine; Nurse Practitioner Acute Care; Orthopaedic Surgery; Physician Assistant; Admitting Provider Internal Medicine Adolescent Medicine; Emergency Provider Student in an Organized Health Care Education/Training Program; Visit Provider Internal Medicine Adolescent Medicine
PROC: 0QS806Z Reposition Right Femoral Shaft with Intramedullary Internal Fixation Device, Open Approach (ICD-10-PCS; CPT 27245; principal; 2025-03-01 08:00)
DX: S72.141A Displaced intertrochanteric fracture of right femur, initial encounter for closed fracture (principal); S42.291A Other displaced fracture of upper end of right humerus, initial encounter for closed fracture; I10 Essential (primary) hypertension; S51.811A Laceration without foreign body of right forearm, initial encounter; S46.001A Unspecified injury of muscle(s) and tendon(s) of the rotator cuff of right shoulder, initial encounter; S60.211A Contusion of right wrist, initial encounter; S40.021A Contusion of right upper arm, initial encounter; W17.89XA Other fall from one level to another, initial encounter; Z79.899 Other long term (current) drug therapy; Z87.891 Personal history of nicotine dependence
CPT/HCPCS: 36415; 51702; 70450; 71045; 72125; 72192; 73030; 73090; 73200; 73502; 73552; 76000; 80048; 80053; 81001; 82550; 83880; 84484; 85025; 93005; 97162; 97166; 97530; 99284; C1713; J0690; J1171; J2003; J2270; J2405; J2704; J7030

== ENCOUNTER 2025-03-12 12:45 | Outpatient (CLI) | payer MEDICARE, SELFPAY ==
--- OUTSIDE RECORDS SUMMARY | 2019-03-06 11:31 | XMS_ITS | Continuity of Care Document ---
Author Organization [facility] Address [address] [place] [address] Phone Care Team Providers Care Contract Admin Name Role Phone Brad OD, Neena Unavailable Unavailable Allergies, Adverse Reactions, Alerts Substance Reaction Status Criticality No Known Drug Allergies Active No I nformation Medications Medication Instructions Dosage Effective Dates (start - stop) Status Comments timolol maleate 0.5 % eye drops INSTILL 1 DROP BY OPHTHALMIC ROUTE 2 TIMES EVERY DAY IN BOTH EYES 1 drop - Active Multi-vitamin - UNK STRENGTH - Active Baby asa - UNK STRENGTH - Active Procedures Procedure Date OPHTHALMIC DIAGNOSTIC IMAGING-RETINA Jul EST PT DETAILED E&M SPECIAL EYE EXAM, INITIAL OPHTHALMIC DIAGNOSTIC IMAGING-RETINA Jun EYE EXAM & TREATMENT REFRACTION EST PT DETAILED E&M OPHTHALMIC DIAGNOSTIC IMAGING-GLAUCOMA J ESTABLISHED PAT INTER ROUTINE EXAM REFRACTION VISUAL FIELD EXAM LIMITED EYE EXAM & TREATMENT Advance Directives Directive Yes / No Effective Date File Name No Information Encounters Encounter Description Practice Location Reason(s) For Visit Diagnoses Date Provider Providers Copied on Encounter [facility], [address], [place], [place], [id number], [place] tel:[phone] [facility] No Information 9 Brad Neena. [address], [place], [place], [id number], [place]. tel:[phone] Referring Provider: Oscar Rodrigues, [address], [place], [address]. tel:[phone] [facility], [address], [place], [place], [id number], [place] tel:[phone] [facility] No Information 9 Brad Neena. [address], [place], [place], [id number], [place]. tel:[phone] Referring Provider: Oscar Rodrigues, [address], [place], [address]. tel:[phone] EST PT DETAILED E&M [facility], [address], [place], [place], [id number], [place] tel:[phone] [facility] Reports glare and starburst around lights (chief complaint) Reports foggy/hazy vision (chief complaint) POAG (chief complaint) Combined forms of age-related cataract, bilateralCys toid macular degeneration , right eyeVitreomac ular adhesion, right eyePrimary open-angle glaucoma, bilateral, mild stage 9 Tyrese Moore. [address], [place], [address], [place]. tel:[phone] Referring Provider: Oscar Rodrigues, [address], [place], [address]. tel:[phone] [facility], [address], [place], [place], [id number], [place] tel:[phone] [facility] VMT (chief complaint) Vitreomacula r adhesion, right eyeCystoid macular degeneration , right eyeCombined forms of age-related cataract, bilateral 8 Milton [address]. [address] [place] [address] , [address], [place], [facility], [place]. tel:[phone] Referring Provider: Neena Salinas, [address], [place], [address]. tel:[phone] EST PT DETAILED E&M [facility], [address], [place], [place], [id number], [place] tel:[phone] [facility] cataract eval (chief complaint) Combined forms of age-related cataract, bilateralVit reomacular adhesion, right eyePrimary open-angle glaucoma right eye mild stagePresbyo anjum 8 Patrick Ortiz. [address], [place], [place], [address], [place]. tel:[phone] Referring Provider: Neena Salinas, [facility] [address], [place], [address]. tel:[phone] [facility], [address], [place], [place], [id number], [place] tel:[phone] [facility] POAG (chief complaint) Primary open-angle glaucoma right eye mild stage 8 Patrick Ortiz. [address], [place], [address], [place]. [phone] Referring Provider: Angel Hayes, [address], [place], [place], [address]. [phone] [facility], [address], [place], [place], [id number], [place] tel:[phone] [facility] open angle (chief complaint) Age-related nuclear cataract, bilateralPri preet open-angle glaucoma right eye mild stageMacular cyst, hole, or pseudohole, right eyePresbyopi a 8 Johnny Dexter. [address], [place], [address], [place]. tel: [phone] Referring Provider: Isacc Reed, [address], [place], [address]. tel: [phone] [facility], [address], [place], [place], [id number], [place] tel:[phone] [facility] [place] Primary open-angle glaucoma right eye mild stage Feb- 7 Johnny Dexter. [address], [place], [address], [place]. tel: [phone] [facility], [address], [place], [place], [id number], [place] tel:[phone] [facility]tonCentin[facility] Open angle with borderline findings, low risk, bilateral 7 Johnny Dexter. [address], [place], [place], [facility], [place]. tel: [phone] [facility], [address], [place], [place], [address], [place] tel:[phone] [facility] Age-related nuclear cataract, bilateralMac ular cyst, hole, or pseudohole, right eye 6 Johnny Dexter. [address], [place], [address], [place]. tel: [phone] [facility], [address], [place], [place], [address], [place] tel:[phone] [facility] [place] Preglaucoma, unspecified, bilateral 6 Johnny Dexter. [address], [place], [address], [place]. tel: [phone] [facility], [address], [place], [place], [id number], [place] tel:[phone] SUSANNE Nayeli Joynera Eye [facility] No Information 5 Dare[address]raz[address]. [address] [place], [address], [place]. tel:[phone] [facility], [address], [place], [place], [address], [place] tel:[phone] [facility] LID - BLEPHARITIS 2 Darell Terrazas. [address] [place], [place], [facility], [place]. tel:[phone] [facility], [address], [place], [place], [id number], [place] tel:[phone] [facility] MACULA - DRUSENCATARA CT - CORTICALBLEP HARITIS 1 Darell Terrazas. [address] [place], [place], [facility], [place]. tel:[phone] [facility], [address], [place], [place], [address], [place] tel:[phone] [facility] GENERAL - MYOPIACATARA CT - NSCGLAUCOMA - GLAUCOMA SUSPECT Fe-0 201 0 D[address]raz[address]. [address] [place], [place], [facility], [place]. tel:[phone] [facility], [address], [place], [place], [id number], [place] tel:[phone] [facility] GLAUCOMA - GLAUCOMA SUSPECT November-0 200 9 Darell [address]razas. [address] [place], [place], [facility], [place]. tel:[phone] Family History Family Member Type Diagnosis Age At Onset No Information Immunizations Vaccine Date Status Comments Flu (split) (3 yrs or older) administered Source: Source Unspecified Payers Payer name Insurance type Covered alliance party ID Authoriza tion(s) No Information Social History Type Description Quantity Date Captured Comments Sex Male Smoking Status No Information Chief Complaint And Reason For Visit No Information Reason For Referral Reason For Referral No Information History Of Present Illness Encounter Date Complaint History Of Prese nt Illness Reports glare and st arburst around lights The 82 Year old male presents for evaluation of Reports glare and starburst around lights in the right eye and left eye. The onset was progressive. It affects both near and far vision. The symptom is constant. It occurs at night. The condition is worsening. Reports foggy/hazy vision The pa tabitha complains of Reports foggy/hazy vision in the right eye and left eye. The onset was progressive. It affects both near and far vision. The symptom is constant. It occurs with no pattern. The condition is worsening. POAG The patient comp lains of POAG in the right eye and left eye. The onset was gradual. It affects Unsure. The symptom is constant. It occurs with no pattern. The condition is stable. Pt is currently compliant with Timolol BID OU.. VMT The 82 Year old male presents for evaluation of VMT in the right eye. year(s) ago. The onset was progressive. It affects OD. The symptom is constant. Hx of POAG pt is using Timolol BID OU. cataract eval The 82 Year old male presents for evaluation of cataract eval in the right eye and left eye. S/P Moh's surgery OS x6 weeks ago. Timolol OU @12 pm. POAG The 82 Year old male presents for evaluation of POAG in the right eye and left eye. The condition is mild. In addition, the condition is associated with HERE FOR OCT. TIMOLOL OU BID USED @ 12:30 P.M.. open angle The 81 Year old male presents for evaluation of open angle in the right eye and left eye. year(s) ago. The condition is borderline low risk. In addition, the condition is associated with here for visual field. timolol ou bid used @12:00 p.m. & 12:00 a.m.. Functional Status Date Functional Assessmen t No Information Instructions Date Instruction Additional Infor kristine schedule cat sx, OU Related to C ombined forms of age-related cataract, bilateral Impression/Plan Related to Vitre omacular adhesion, right eye Impression/Plan Related to Prima ry open-angle glaucoma, bilateral, mild stage Impression/Plan Related to Cysto id macular degeneration, right eye Impression/Plan Related to Combi shane forms of age-related cataract, bilateral Return in 6 months for DFE with [facility] Related to Vitreomacular adhesion, right eye Impression/Plan Related to Combi shane forms of age-related cataract, bilateral Impression/Plan Related to Cysto id macular degeneration, right eye Impression/Plan Related to Vitre omacular adhesion, right eye Referral to [facility] at n ext available. // schedule cat sx, OU (retinal clearance prior) Related to Combined forms of age-related cataract, bilateral Impression/Plan Related to Vitre omacular adhesion, right eye Impression/Plan Related to Combi shane forms of age-related cataract, bilateral Impression/Plan Related to Prima ry open-angle glaucoma right eye mild stage Impression/Plan Related to Presb yopia RTC in 6 months for VCE w/ Dr. Salinas Related to Primary open-angle glaucoma right eye mild stage Impression/Plan Related to Prima ry open-angle glaucoma right eye mild stage RTC 4 mo OCT/TCK w/ Dr Johnny Elise lated to Primary open-angle glaucoma right eye mild stage Impression/Plan Related to Presb yopia Impression/Plan Related to Macul ar cyst, hole, or pseudohole, right eye Impression/Plan Related to Prima ry open-angle glaucoma right eye mild stage Impression/Plan Related to Age-r elated nuclear cataract, bilateral Assessments Type Assessment Date No Information Patient Care Teams Name Effective Dates (start - stop) Status Members No Information
--- OUTSIDE RECORDS SUMMARY | 2025-03-12 12:48 | XMS_ITS | CCD ---
Author Name Interface, [id number] lity Address [place] [address] [facility] Address [place] [address] Reason for Visit Social History
--- OUTSIDE RECORDS SUMMARY | 2025-03-12 12:48 | XMS_ITS | Encounter Summary ---
Author Organization [facility] es Address [address] [place] [address] Care Team Providers Care Roll Out Manager Name Role Phone Darell Hernandez MD Primary Care Provider Source Comments Applies to Substance Abuse Treatment Information Only: The Federal rules restrict any use of the information to criminally investigate or prosecute any Alcohol or Drug Abuse Patient.[facility] Reason for Visit * Reason Onset Date Comments Appointment Reminder 08/22/2021 Encounter Details Date Type Department Care Team (Late st Contact Info) Description 08/22/2021 Telephone [facility][id number] [facility] [address] [place] [address] Darell Hernandez MD [address] [facility] [address] [place] [address] Appointment Reminder Social History Tobacco Use Types Packs/Day Years Used Date Smoking Tobacco: Former Cigarettes 1 20 0 07/09/1957 - 07/09/1977 Smokeless Tobacco: Never Alcohol Use Standard Drinks/Week Comments Yes 5.8 (1 standard drink = 0.6 oz p ure alcohol) Social Connection and Isolation Panel [NHANES] A nswer Date Recorded In a typical week, how many times do you talk on the phone with family, friends, or neighbors? Twice a week 04/24/20 How often do you get togethe r with friends or relatives? Once a week 04/24/2021 How often do you attend chur ch or jew services? Never 04/24/2021 Do you belong to any clubs o r organizations such as buddhist groups, unions, fraternal or athletic groups, or school groups? Yes 04/24/2021 How often do you attend meet ings of the clubs or organizations you belong to? 1 to 4 times per year 04/24/2021 Are you , , di vorced, , never , or living with a partner? 04/24/2021 AUDIT-C Answer Date Recorded Q1: How often do you have a drink containing alcohol? 4 or more times a week 04/24/2021 Q2: How many drinks containi ng alcohol do you have on a typical day when you are drinking? 1 or 2 Q3: How often do you have si x or more drinks on one occasion? Never 04/24/2021 Overall Financial Resource Strain (CARDIA) Answe r Date Recorded How hard is it for you to pa y for the very basics like food, housing, medical care, and heating? Not hard at all 04/24/2021 PHQ-2 Answer Date Recorded PHQ-2 Total Score (RETIRED) 0 04/08 [facility] - Occupational Stress Questionnaire Answer Date Recorded Do you feel stress - tense, restless, nervous, or anxious, or unable to sleep at night because your mind is troubled all the time - these days? Not at all 04/24/2021 Exercise Vital Sign Answer Date Recorde d On average, how many days pe r week do you engage in moderate to strenuous exercise (like a brisk walk)? 4 days 04/24/2021 On average, how many minutes do you engage in exercise at this level? 60 min 04/24/2021 Hunger Vital Sign Answer Date Recorded Within the past 12 months, y ou worried that your food would run out before you got the money to buy more. Never true 04/24/20 21 Within the past 12 months, t he food you bought just didn't last and you didn't have money to get more. Never true 04/24/2021 PRAPARE - Transportation Answer Date Re corded In the past 12 months, has l ack of transportation kept you from medical appointments or from getting medications? No 04/08 In the past 12 months, has l ack of transportation kept you from meetings, work, or from getting things needed for daily living? No 04/24/2021 Housing Stability Vital Sign Answer Dashawn e Recorded In the last 12 months, was t here a time when you were not able to pay the mortgage or rent on time? No 04/24/2021 In the last 12 months, how many places have you lived? 1 04/24/2021 In the last 12 months, was t here a time when you did not have a steady place to sleep or slept in a assisted (including now)? 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 [employer] Not on file Not on file Not on file documented as of this encounter Miscellaneous Notes * Telephone Encounter - Marina Newman RN - 08/22/2021 10:24 AM CST Pt missed June f/u with Dr Hernandez, please have him reschedule [employer] documented in this encounter Plan of Treatment Upcoming Encounters Date Type Department Care Team (Latest Contact Info) Description 06/23/2025 2:00 PM [employer] Office Visit [facility] #[id number] [place] [address] Darell Hernandez MD [address] [facility] [address] [place] [address] ANNUAL WELLNESS EXAM 08/03/2025 11:30 AM IC [employer] Outpatient Imaging [facility] #[id number] IMG [address] [facility] [address] [place] [address] Caron Luna Echo Complete 08/03/2025 1:15 PM IC [employer] Office Visit [facility] #[id number] [phone] [facility] [address] [place] [address] Caron Luna MD [address] [facility] [address] [place] [address] Caron Luna // EP 6 [place] F/up [id number], [id number] documented as of this encounter Visit Diagnoses Not on filedocumented in this encounter Additional Health Concerns Assessment Noted Time PHQ-9 Depression Total Score: 0 04/25/20 21 10:10 AM CDT documented as of this encounter Care Teams Roll Out Manager Relationship Specialty Start Date End Date Darell Hernandez MD [address] [facility] [address] [place] [phone] PCP - General Internal Medicine. 12/03/24 documented as of this encounter
--- NOTE | 2025-03-12 12:49 | XR_ITS ---
FINAL REPORT TECHNIQUE: 5 views right hip CLINICAL HISTORY: f/u right hip fx COMPARISON: 02/27/2025 FINDINGS: RIGHT HIP 5 views of the right hip were obtained. In the interval since the prior exam of 02/27/2025 an intramedullary ramona has been placed with compression screws bridging an intertrochanteric fracture of the proximal right femur. The joint spaces appear normal. The visualized bony structures are well aligned. No soft tissue abnormality is seen. IMPRESSION: Postoperative changes of the right hip as described, with an intramedullary ramona placed with compression screws bridging an intertrochanteric fracture of the right femur. Reviewed, Interpreted and Dictated by Jaylon Villa MD Transcribed by Angie Moreno Authenticated and . [facility]
== END 2025-03-12 23:59 | disposition home or self-care (01) ==
LOC: RAD 12:46
PROVIDERS: PCP Internal Medicine; Visit Provider Orthopaedic Surgery
DX: S72.141A Displaced intertrochanteric fracture of right femur, initial encounter for closed fracture (principal); Z98.890 Other specified postprocedural states
CPT/HCPCS: 73502